=== PATIENT | female | born 2000 | race Caucasian/White ===

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

== ENCOUNTER 2023-04-19 12:34 | Outpatient (REF) | payer MEDICAID, SELFPAY ==
[2023-04-19 14:12] LABS: HCG Quantitative < 2 mIU/mL
== END 2023-04-19 12:35 | disposition home or self-care (01) ==
LOC: HO.HHCL 12:34
PROVIDERS: Visit Provider Nurse Practitioner Family
DX: N91.2 Amenorrhea, unspecified (principal)
CPT/HCPCS: 36415; 84702

== ENCOUNTER 2023-04-21 12:23 | Outpatient (REF) | payer MEDICAID, SELFPAY ==
[2023-04-21 13:46] LABS: HCG Quantitative < 2 mIU/mL
== END 2023-04-21 12:24 | disposition home or self-care (01) ==
LOC: HO.HHCL 12:23
PROVIDERS: Visit Provider Nurse Practitioner Family
DX: N91.2 Amenorrhea, unspecified (principal)
CPT/HCPCS: 36415; 84702

== ENCOUNTER 2023-05-12 16:35 | Outpatient (REF) | payer MEDICAID, SELFPAY | END 2023-05-12 16:36 | disposition home or self-care (01) | LOC: HO.HHCLNP 16:35 | PROVIDERS: Visit Provider Registered Nurse | DX: R30.0 Dysuria (principal) | CPT/HCPCS: 87086; 87088; 87186 ==

== ENCOUNTER 2023-06-02 00:55 | Emergency (ER) | payer MEDICAID, SELFPAY ==
[2023-06-02 01:12] VITALS: BP 126/57; PULSE 78; RESP 16; TEMP 36.6; O2SAT 100; BMI 35.2
[2023-06-02 01:48] LABS: Appearance Urine Clear; Color Urine Yellow; Glucose Urine UA Negative (Negative); Leukocyte Esterase Urine Trace (Negative); Nitrite Urine Negative (Negative); PH 6.5 (5.0-9.0); Specific Gravity - Urine >= 1.030 (1.005-1.025); UMIC TRIGGER UACC YES; Urine Blood Negative (Negative); Urine Ketones Trace mg/dL (Negative); Urine Protein Negative (Neg-Trace)
[2023-06-02 01:59] LABS: Bacteria Urine None Seen (None Seen); Hyaline Casts Urine 0-2 /LPF (0-2); WBC Urine 0-5 /HPF (0-5)
[2023-06-02 04:16] VITALS: BP 101/52; PULSE 72; RESP 16; O2SAT 97
[2023-06-02 05:39] LABS: UPreg QC Valid YES; Urine Pregnancy NEGATIVE (NEGATIVE)
--- NOTE | 2023-06-02 05:42 | ED_ITS ---
HPI - General Adult General Chief complaint: General Medical Stated complaint: urogen female Time Seen by Provider: 06/02/23 05:32 Source: patient Mode of arrival: ambulatory Limitations: no limitations History of Present Illness HPI narrative: Patient comes to the emergency room complaining of an allergic reaction to Monistat over chills. Patient states that she was diagnosed with a UTI, took all the prescribed antibiotics. Shortly after she finished a course of antibiotics, patient started having itching and burning in the vulvar area. Patient bought [id number] Monistat of yells and applied him at home. Patient states that a few minutes after she inserted the overall, she started having worsening symptoms of itching and burning. Patient removed most of the cream without wash cloth. By the time the patient arrived in the emergency room, patient was still complaining of burning sensation and labial swelling Related Data Allergies Allergy/AdvReac Type Severity Reaction Status Date / Time Seasonal Allergies Allergy Itchy Eyes Verified 06/02/23 01:11 Review of Systems Review of Systems: Constitutional : No Weight loss, No Fever, No Chills, No Night Sweats, No Fatigue, No Malaise ENT/Mouth : No Hearing loss, No Ear Pain, No Nasal Congestion, No Sinus Pain, No Hoarseness, No sore throat, No Rhinorrhea, No Swallowing Difficulty Eyes: No Eye Pain, No Swelling, No Redness, No Foreign Body, No Discharge, No Vision Changes Cardiovascular : No Chest Pain, No SOB, No Dyspnea on Exertion, No Orthopnea, No Edema, No Palpitations Respiratory : No Cough, No Sputum, No Wheezing, No Smoke Exposure, No Dyspnea Gastrointestinal : No Nausea, No Vomiting, No Diarrhea, No Constipation, No abdominal Pain, No Hematochezia, No Melena Genitourinary : Complaining of labial swelling itching and burning. No Dysuria, No Urinary Frequency, No Hematuria, No Urinary Incontinence, No Urgency, No Flank Pain, No Urinary Flow Changes, No Hesitancy Musculoskeletal : No joint pain, No Myalgias, No Joint Swelling Skin : No Skin Lesions, No rash Neuro : No Weakness, No Numbness, No Paresthesias, No Loss of Consciousness, No Dizziness, No Headache Psych : No Anxiety/Panic, No Depression, No SI/HI/AH/VH, No Social Issues, Heme/Lymph: No Bruising, No Bleeding,No Lymphadenopathy Endocrine : No Polyuria, No Polydipsia, No Temperature Intolerance [facility] Social History Social History Advance Directives: No Advance Directives Information Provided: No Physical Exam ED Vital Signs: Vital Signs - 24 hr 06/02/23 01:12 06/02/23 04:16 Temperature 97.9 F Pulse Rate 78 72 Respiratory Rate 16 16 Blood Pressure 126/57 L 101/52 L Pulse Oximetry 100 97 Oxygen Delivery Method Room Air Room Air BMI result Body Mass Index 35.2 Const Other: Appearance: Alert. Oriented X3. No acute distress. Eyes: Pupils equal, round and reactive to light. ENT: Pharynx normal. Neck: Normal inspection. Neck supple. No lymph nodes noted. No crepitus CVS: Normal heart rate and rhythm. Pulses normal. Normal S1 and S2 Respiratory: No respiratory distress. Breath sounds normal. No Wheezing. No rales Abdomen: Soft and nontender. No rigidity. No distention. : Normal genitalia, no erythema, no swelling Skin: Skin warm and dry. Normal skin color. Normal skin turgor. Extremities: No lower extremity edema. No Lacerations. No Rash Neuro: Oriented X 3. No motor deficit. No sensory deficit. Moving all extremities. No slurred speech. CN 2 through 12 grossly intact Psych: calm, cooperative, normal affect Medical Decision Making Medical Decision Making MDM Narrative: Patient likely had an allergic reaction to the Monistat. Patient was able to remove it -patient was given p.o. prednisone, Benadryl and Pepcid -no airway compromise Lab Data Labs: Lab Results 06/02/23 Range/Units 01:43 Urine Color Yellow Urine Appearance Clear Urine pH 6.5 (5.0-9.0) Ur Specific [place] >= 1.030 H (1.005-1.025) Urine Protein Negative (Neg-Trace) mg/dL Urine Glucose (UA) Negative (Negative) mg/dL Urine Ketones Trace (Negative) mg/dL Urine Blood Negative (Negative) Urine Nitrite Negative (Negative) Ur Leukocyte Esterase Trace H (Negative) Urine RBC 6-10 H (0-2) /HPF Urine WBC 0-5 (0-5) /HPF Ur Squamous Epith Cells 3-5 (0-2) /HPF Urine Bacteria None Seen (None Seen) Hyaline Casts 0-2 (0-2) /LPF Urine Test NEGATIVE (NEGATIVE) Discharge Plan Discharge Clinical Impression: Allergic reaction to drug Patient Disposition: Home, Self-Care Instructions: General Allergic Reaction (ED) Additional Instructions: Please follow-up with your primary care physician tomorrow. If you have any worsening or new symptoms, please return to the emergency room or call 911
[2023-06-02 06:03] VITALS: BP 97/50; PULSE 72; RESP 16; TEMP 36.7; O2SAT 97
[2023-06-02] MEDS: predniSONE 20 MG TABLET 40 MG PO (06:33)
[2023-06-02] MEDS: diphenhydrAMINE HCL 25 MG CAPSULE 50 MG PO (06:33)
[2023-06-02] MEDS: Famotidine 20 MG TABLET PO (06:33)
[2023-06-02 06:37] VITALS: BP 97/50; PULSE 72; RESP 16; TEMP 36.6; O2SAT 98
== END 2023-06-02 06:38 | disposition home or self-care (01) ==
PROVIDERS: Emergency Provider Emergency Medicine; PCP Registered Nurse
DX: L29.2 Pruritus vulvae (principal); T49.0X5A Adverse effect of local antifungal, anti-infective and anti-inflammatory drugs, initial encounter; Y92.9 Unspecified place or not applicable
CPT/HCPCS: 81001; 81025; 99283

== ENCOUNTER 2023-11-30 18:05 | Emergency (ER) | payer OTHER, SELFPAY ==
--- NOTE | ~2023-11-30 | US_ITS ---
EXAMINATION: US OBSTETRICAL ULTRASOUND CLINICAL INFORMATION: patient with nausea and vomiting. COMPARISON: None available. LMP: October 24, 2023. Gestational age by maternal dates is 5 weeks and 2 days. Estimated date of delivery by maternal dates is July 30, 2024. TECHNIQUE: Transabdominal and transvaginal obstetrical ultrasound performed. FINDINGS: The uterus is normal in appearance. There is a single intrauterine gestational sac with mean sac diameter of 0.97 cm suggesting a 5 week 5 day gestation. No pole identified. MATERNAL ADNEXA: The right maternal ovary measures 2.6 x 1.7 x 1.6 cm. The left maternal ovary measures 3.2 x 2.1 x 2.7 cm. There is no significant maternal adnexal mass. No maternal pelvic ascites. US/US OB pelvic and transvaginal IMPRESSION: Single intrauterine gestational sac and yolk sac likely related to early . No pole currently identified. Follow-up suggested. Electronically signed by: Keo Neves MD 12/01/2023 02:25 AM EDT
[2023-11-30 18:22] VITALS: BP 119/60; PULSE 98; RESP 16; TEMP 36.3; O2SAT 99; BMI 31.7
--- NOTE | 2023-11-30 18:25 | ED_ITS ---
HPI - General Adult General Chief complaint: Abdominal Pain Stated complaint: nauseous/? not feeling well Time Seen by Provider: 11/30/23 22:02 Source: patient Mode of arrival: ambulatory Limitations: no limitations History of Present Illness ED Provider: JILL WOODARD narrative: 22 yo female with no sig PMH noted the past few days some intermittent crampy abdominal pain LMP 10/24 and then she felt nauseated she started to worry she was . She denies severe pain, fainting, discharge or bleeding. This is her first . MD complaint: ? Onset (ago): day(s) (2) Location: abdomen Radiation: non-radiation Severity: mild Quality: dull Relieving factors: none Exacerbating factors: none Associated symptoms: loss of appetite Treatments prior to arrival: none Related Data Previous Rx's ?Medication ?Instructions ?Recorded vit no.133-ferrous 1 tab PO DAILY #90 tabs 11/30/23 fumarate 28 mg-folic acid 800 mcg tablet () Allergies Allergy/AdvReac Type Severity Reaction Status Date / Time Seasonal Allergies Allergy Itchy Eyes Verified 11/30/23 18:25 Review of Systems 2 Review of Systems: Constitutional : No Weight loss, No Fever, No Chills ENT/Mouth : No sore throat, No Rhinorrhea Eyes: No Swelling, No Redness Cardiovascular : No Chest Pain, No SOB, NoEdema Respiratory : No Cough, No Sputum, No Wheezing Gastrointestinal : Positive Nausea, no Vomiting, no Diarrhea, positive abdominal Pain, No Hematochezia, No Melena Genitourinary : No Dysuria, No Urinary Frequency, No Hematuria, No Urgency Musculoskeletal : No joint pain, No Myalgias, No Joint Swelling Skin : No Skin Lesions, No rash Neuro : No Weakness, No Numbness, No Dizziness, No Headache All other systems reviewed and are negative. COUNTS INCLUDE 234 BEDS AT THE [facility] Past Medical History Attestation statement: The following information was validated with the patient. Source: old records reviewed Medical History Anemia Social History Social History (Updated 11/30/23 @ 22:38 by Wen Lopes DO) Patient Tobacco Use Status: Never used Tobacco Smoked in Last 30 Days: No Use of substances other than those prescribed or required for medical reasons: No Advance Directives: No Advance Directives Information Provided: No Do you have a plan to hurt others: No Plan Physical Exam ED Vital Signs: Vital Signs - 24 hr 11/30/23 18:22 11/30/23 21:23 11/30/23 21:27 Temperature 97.3 F 96.8 F 98.6 F Pulse Rate 98 82 85 Respiratory Rate 16 16 16 Blood Pressure 119/60 118/54 L 118/54 L Pulse Oximetry 99 99 100 Oxygen Delivery Method Room Air Room Air Room Air 11/30/23 22:32 11/30/23 22:34 Temperature 97.2 F 97.2 F Pulse Rate 72 72 Respiratory Rate 16 16 Blood Pressure 95/53 L 95/53 L Pulse Oximetry 100 100 Oxygen Delivery Method Room Air Room Air BMI result Body Mass Index 31.7 Appearance: Alert. Oriented X3. No acute distress. Eyes: Pupils equal, round and reactive to light. ENT: Pharynx normal. Neck: Normal inspection. Neck supple. CVS: Normal heart rate and rhythm. Pulses normal. Respiratory: No respiratory distress. Breath sounds normal. Abdomen: Soft and nontender. Skin: Skin warm and dry. Normal skin color. Normal skin turgor. Extremities: No lower extremity edema. No calf ttp Neuro: Oriented X 3. No motor deficit. No sensory deficit. Course Course Course Narrative: RME; time by SHERI October. 22-year-old female presents to ED for nausea and vomiting without any abdominal pain. Patient has missed her menstruation. Abdomen is benign. Labs ordered. Reevaluation(s) Reevaluation #1: final report agrees with prelim read - early no change in management Medical Decision Making Medical Decision Making [facility] Narrative: 22 yo female here with some cramps but no bleeding and nausea LMP in october at this time concern for her abdominal exam is completely benign no ttp doubt ectopic will obtain basic labs, UA and US to evaluate for IUP. Return precautions given and start on . Differential Diagnosis Differential Diagnoses: The differential diagnosis associated with the presentation includes early , abdominal cramping, threatened Lab Data [facility] Lab Attestation statement: I reviewed the patient's lab results. 11/30/23 18:33 11/30/23 18:33 Labs: Lab Results 11/30/23 11/30/23 Range/Units 18:33 20:05 WBC 9.5 (4.8-10.8) X10*3/uL RBC 4.87 (4.20-5.50) X10*6/uL Hgb 11.1 L (12.0-16.0) g/dl Hct 35.4 L (37.0-47.0) % MCV 72.7 L (80.0-98.0) fL MCH 22.8 L (27.0-33.0) pg MCHC 31.4 (31.0-35.0) g/dl RDW 14.5 (11.0-16.0) % Plt Count 345 D (160-400) X10*3/uL MPV 10.2 (9.4-12.3) fL Immature Gran % (Auto) 0.3 (0.0-0.4) % Neut % (Auto) 71.2 (45-73) % Lymph % (Auto) 19.0 L (20-40) % [place] % (Auto) 8.1 (2-11) % Eos % (Auto) 1.0 (0-4) % Baso % (Auto) 0.4 (0-2) % Lymph # (Auto) 1.8 (1.2-4.9) X10*3/uL [place] # (Auto) 0.8 (0.1-1.2) X10*3/uL Eos # (Auto) 0.1 (0.0-0.4) X10*3/uL Baso # (Auto) 0.0 (0.0-0.2) X10*3/uL Abs Immat Gran (auto) 0.03 (0.00-0.03) X10*3/uL Absolute Neuts (auto) 6.8 (2.0-8.3) x10*3/uL Absolute Nucleated RBC 0.000 (0.0-0.012) X10*3/uL Nucleated RBC % (auto) 0.0 (0.0-0.2) /100WBC Sodium 138 (135-145) mmol/L Potassium 3.8 (3.3-5.1) mmol/L Chloride 107 (96-108) mmol/L Carbon Dioxide 23 (22-29) mmol/L Anion Gap 12 (12-20) BUN 9 (9-16) mg/dL Creatinine 0.67 (0.5-1.4) mg/dL Estim Creat Clear Calc 125.0 Estimated GFR > 60 Random Glucose 90 (60-115) mg/dL Calcium 10.0 D (8.4-10.2) mg/dL Total Bilirubin 0.2 (0.0-1.0) mg/dL AST 13 (5-31) U/L ALT 12 (0-31) U/L Alkaline Phosphatase 45 (39-117) U/L Total Protein 7.6 (6.5-8.0) g/dL Albumin 4.4 (3.5-5.0) g/dL Lipase 34 (8-78) U/L Beta HCG, Quant 21221 mIU/mL Urine Color Yellow Urine Appearance Clear Urine pH 5.5 (5.0-9.0) Ur Specific [place] 1.010 (1.005-1.025) Urine Protein Negative (Neg-Trace) mg/dL Urine Glucose (UA) Negative (Negative) mg/dL Urine Ketones Negative (Negative) mg/dL Urine Blood Negative (Negative) Urine Nitrite Negative (Negative) Ur Leukocyte Esterase Negative (Negative) Urine Test POSITIVE H (NEGATIVE) Influenza Type A (PCR) NEGATIVE (Negative) Influenza Type B (PCR) NEGATIVE (Negative) RSV RNA Qual (PCR) NEGATIVE (Negative) SARS-CoV-2 RNA (RT-PCR) NEGATIVE (Negative) Independent Interpretation I performed an independent interpretation of an: Ultrasound (early , cyst) Radiology Impression Discussion of test interpretation with radiology: I have reviewed the radiologist's reading. Independent Historian Clinical information obtained from an independent historian. History obtained from or confirmed by: Other External Record Review External record reviewed: Office record Discharge Plan Discharge Clinical Impression: Early stage of , Ovarian cyst Patient Disposition: Home, Self-Care Instructions: (ED), Ovarian Cyst (ED) Additional Instructions: return for any worsening symptoms such as severe pain, vaginal bleeding, fainting or any other concerns. please follow up with your doctor start a final ultrasound report not done if anything unusual will call at home Prescriptions: New 28-800 mg-mcg tablet 1 tab PO DAILY Qty: 90 0RF Interventions: ED Discharge Assessment Last Done: 11/30/23 22:34 Discharge Date/Time: 11/30/23 22:35 Print Language: Kinyarwanda
[2023-11-30 18:38] LABS: MANUAL DIFF FLAG NO
[2023-11-30 18:41] LABS: Basophils Percent Auto 0.4 % (0-2); Eosinophils Absolute Auto 0.1 X10*3/uL (0.0-0.4); Hematocrit 35.4 % (37.0-47.0); Hemoglobin 11.1 g/dl (12.0-16.0); Imm Gran Abs Auto 0.03 X10*3/uL (0.00-0.03); Imm Gran Pct Auto 0.3 % (0.0-0.4); Lymphocytes Absolute Auto 1.8 X10*3/uL (1.2-4.9); Mean Corpuscular HGB Conc 31.4 g/dl (31.0-35.0); Mean Corpuscular Hemoglobin 22.8 pg (27.0-33.0); Mean Corpuscular Volume 72.7 fL (80.0-98.0); Mean Platelet Volume 10.2 fL (9.4-12.3); Monocytes Absolute Auto 0.8 X10*3/uL (0.1-1.2); Monocytes Percent Auto 8.1 % (2-11); Neutrophils Absolute Auto 6.8 x10*3/uL (2.0-8.3); Neutrophils Percent Auto 71.2 % (45-73); Platelet Count 345 X10*3/uL (160-400); Red Blood Count 4.87 X10*6/uL (4.20-5.50); Red Cell Distribution Width 14.5 % (11.0-16.0); White Blood Count 9.5 X10*3/uL (4.8-10.8)
[2023-11-30 18:59] LABS: Alanine Aminotransferase 12 U/L (0-31); Albumin Level 4.4 g/dL (3.5-5.0); Alkaline Phosphatase 45 U/L (39-117); Anion Gap 12 (12-20); Aspartate Amino Transferase 13 U/L (5-31); Bilirubin Total 0.2 mg/dL (0.0-1.0); Blood Urea Nitrogen 9 mg/dL (9-16); Carbon Dioxide 23 mmol/L (22-29); Chloride 107 mmol/L (96-108); Estimated Glomerular Filt Rate > 60; Glucose Random 90 mg/dL (60-115); HCG Quantitative 11957 mIU/mL; Lipase 34 U/L (8-78); Potassium 3.8 mmol/L (3.3-5.1); Sodium 138 mmol/L (135-145); Total Protein 7.6 g/dL (6.5-8.0)
[2023-11-30 19:19] LABS: Influenza A PCR NEGATIVE (Negative); Influenza B PCR NEGATIVE (Negative); Resp Syncy Virus RNA Qual PCR NEGATIVE (Negative); SARS COV2 PCR INHOUSE NEGATIVE (Negative)
[2023-11-30 20:12] LABS: Appearance Urine Clear; Color Urine Yellow; Glucose Urine UA Negative (Negative); Leukocyte Esterase Urine Negative (Negative); Nitrite Urine Negative (Negative); PH 5.5 (5.0-9.0); Urine Blood Negative (Negative); Urine Ketones Negative (Negative); Urine Protein Negative (Neg-Trace)
[2023-11-30 20:13] LABS: UPreg QC Valid YES; Urine Pregnancy POSITIVE (NEGATIVE)
[2023-11-30 21:23] VITALS: BP 118/54; PULSE 82; RESP 16; TEMP 36; O2SAT 99
[2023-11-30 21:27] VITALS: BP 118/54; PULSE 85; RESP 16; TEMP 37; O2SAT 100
[2023-11-30 22:32] VITALS: BP 95/53; PULSE 72; RESP 16; TEMP 36.2; O2SAT 100
[2023-11-30 22:34] VITALS: BP 95/53; PULSE 72; RESP 16; TEMP 36.2; O2SAT 100
== END 2023-11-30 22:35 | disposition home or self-care (01) ==
PROVIDERS: Physician Assistant; Emergency Provider Emergency Medicine; PCP Registered Nurse
DX: N83.209 Unspecified ovarian cyst, unspecified side (principal); R11.2 Nausea with vomiting, unspecified; R10.2 Pelvic and perineal pain; Z03.818 Encounter for observation for suspected exposure to other biological agents ruled out; Z79.899 Other long term (current) drug therapy
CPT/HCPCS: 0241U; 76801; 76817; 80053; 81003; 81025; 83690; 84702; 85025; 99284

== ENCOUNTER 2024-03-26 16:30 | Emergency (ER) | payer OTHER, SELFPAY ==
[2024-03-26 17:42] VITALS: BP 110/60; PULSE 113; RESP 18; TEMP 36.9; O2SAT 98; BMI 34.2
--- NOTE | 2024-03-26 17:42 | ED_ITS ---
HPI - URI/Sore Throat General Chief Complaint: Upper Respiratory Symptoms Stated Complaint: Congestion, chills, body aches Time Seen by Provider: 03/26/24 18:30 Source: patient Mode of arrival: ambulatory Limitations: no limitations History of Present Illness ED Provider: Dr. Kiel Pinto HPI Narrative: 23-year-old female history of anxiety, 22 weeks 5 days based on LMP 10/12/2023 with patient's stated EDC of 07/26/2024 who presents emergency department for evaluation of anxiety and flu-like illness. Patient states that she had to stop her antianxiety medicine secondary to her . She states that 3 days prior she believes that she had an anxiety attack. She then developed shaking chills , palpitations with fast heart rate with no skipped beats or pauses. He was then she was developed chills, sore throat, body aches, rhinorrhea, chest pain, shortness of breath. She denied nausea, vomiting, diarrhea, abdominal pain, dysuria, vaginal discharge, bloody discharge. She states she can feel the baby moving. Related Data Previous Rx's ?Medication ?Instructions ?Recorded vit no.133-ferrous 1 tab PO DAILY #90 tabs 11/30/23 fumarate 28 mg-folic acid 800 mcg tablet () oseltamivir 75 mg capsule (Tamiflu) 75 mg PO Q12H 5 days #10 caps 03/26/24 Allergies Allergy/AdvReac Type Severity Reaction Status Date / Time Seasonal Allergies Allergy Itchy Eyes Verified 03/26/24 17:45 Review of Systems Review of Systems: Yes all other systems are reviewed and are negative [facility] Past Medical History Medical History Anemia Social History Social History (Updated 11/30/23 @ 22:38 by Wen Lopes DO) Patient Tobacco Use Status: Never used Tobacco Smoked in Last 30 Days: Yes Use of substances other than those prescribed or required for medical reasons: No Advance Directives: No Advance Directives Information Provided: No Patient : Yes Physical Exam Vital Signs: Vital Signs: Last Vital Signs Temp 98.9 F 03/26/24 20:58 Pulse 93 03/26/24 20:58 Resp 18 03/26/24 20:58 BP 118/68 03/26/24 20:58 Pulse Ox 96 01/21/25 20:58 O2 Del Method Room Air 03/26/24 20:58 BMI result Body Mass Index 34.2 Vital signs revealed an elevated heart rate of 113 otherwise unremarkable Exam: General: Awake, alert in no distress Head: Normocephalic, atraumatic EENT: PERRL, Lids normal, sclera normal, conjunctiva normal, nose normal , ears normal, throat without erythema or exudates Neck: Supple, no adenopathy Lung: breath sounds symmetric, no wheezing, rales or rhonchi Chest: symmetric movement, nontender Heart: regular rate and rhythm, normal S1, S2 no murmurs or rubs Abdomen: soft, non-tender, nondistended, normal bowel sounds Back: no vertebral tenderness, no CVAT Extremities: no deformities, moves all extremities symmetrically, no edema Neuro: Awake, alert, oriented, normal speech, cranial nerves intact, moves all extremities symmetrically Psych: Pleasant, cooperative Course Course Course Narrative: This is a Rapid Medical Examination (RME) performed by Alisia Sung PA-C in triage. Full HPI, ROS, assessment and treatment plan per primary provider in the Main ED. 23 yo female who is 22 weeks presenting to the ER for evaluation of body aches, chills, nasal congestion for the last 3-4 days. diarrhea 1st day which resolved. reporting palpitations over the weekend. follows with [facility] for OB. reports normal movement today. no vaginal discharge or bleeding. Plan: charge nurse aware, to be brought back to treatment area Medications Administered Discontinued Medications Generic Name Dose Route Start Last Admin Trade Name Freq PRN Reason Stop Dose Admin Oseltamivir Phosphate 75 mg 03/26/24 20:08 03/26/24 20:18 Oseltamivir Phosphate 75 Mg Capsule PO 03/26/24 20:09 75 mg ONCE ONE Administration Medical Decision Making Medical Decision Making [facility] Narrative: 23-year-old female history of anxiety, 22 weeks 5 days based on LMP 10/12/2019 with patient's stated EDC of 07/26/2024 who presents emergency department for evaluation of anxiety and flu-like illness x3 days with symptoms including shaking chills, palpitations, sore throat, body aches, rhinorrhea, chest pain, shortness of breath. She denied sore throat, nausea, vomiting, abdominal pain, diarrhea, dysuria, vaginal discharge or bloody discharge. She states she can feel the baby moving there has been no decreased movement noted since she has been feeling ill. Vital signs revealed elevated heart rate otherwise unremarkable. heart tones were between 148 and 155. Physical examination was unremarkable. Differential diagnosis: ?Includes but is not limited to viral syndrome, COVID- 19, influenza, RSV, labor Course: 19:06 My interpretation patient's laboratory evaluation is as follows: COVID-19, RSV and rapid strep tests were negative. Patient's influenza test was positive for influenza A. I did discuss the patient's presentation and physical exam with the OBGYN covering [facility], Dr. Schreiber. She felt that the patient's symptoms were consistent with the flu and that the patient was not having any evidence for labor and did not need to be monitored at this time. She did recommend that the patient be started on Tamiflu 75 mg q.12 hours x5 days. The patient was given her 1st dose of Tamiflu here in the emergency department and given a prescription. She was also advised rest, take Tylenol for pain and fever into increase your fluid intake. She was given a work note, printed and verbal instructions and discharged home. Admission/Observation Consideration of admission/observation: Escalation of care including admission/observation considered (Yes) Consult Healthcare Provider Management of the patient was discussed with: Clinical Director (Covering [employer]ERSH[employer]NAGER physician at [facility], Dr. Schreiber) Lab Data Labs: Lab Results 03/26/24 Range/Units 18:41 Influenza Type A (PCR) POSITIVE A (Negative) Influenza Type B (PCR) NEGATIVE (Negative) RSV RNA Qual (PCR) NEGATIVE (Negative) SARS-CoV-2 RNA (RT-PCR) NEGATIVE (Negative) S. pyogenes GrpA ANUP Negative (Negative) Prescription Management I considered prescription management with: Antiviral (Tamiflu) Discharge Plan Discharge Clinical Impression: Influenza A, Second trimester Patient Disposition: Home, Self-Care Instructions: Influenza (ED) Additional Instructions: Your COVID-19, RSV and rapid strep throat test were negative Your influenza test was positive for influenza a and this explains all of your symptoms. Take extra-strength Tylenol 500 mg pills, 2 pills every 6 hours as needed for pain and fever. Take Tamiflu 75 mg pills, 1 pill every 12 hours for 5 days. This is a medication that will help reduce the number of days that your sick with the flu. Increase your fluid intake and rest. You need to make sure that you eat as well. I did discuss your presentation with the covering OBGYN doctor at [facility], Dr. Schreiber. At this time, she does not think that you need to go to [facility] to be monitored for contractions. However she wants you to follow-up with their group in 1-2 weeks when you feeling better for re- evaluation. If you develop any abdominal pain, vaginal discharge or bleeding vaginally you should go to [facility] for evaluation by your OBGYN doctors. We do not take care of women after 20 weeks and if you came here we would send you to [facility] in an ambulance. Please follow the influenza instructions but do not take any anti-inflammatory medications such as aspirin, ibuprofen, naproxen, Aleve or Motrin. Please return to the emergency department if your symptoms get worse or if you develop any symptoms that are concerning to you. Please see the return to work note Prescriptions: New oseltamivir [Tamiflu] 75 mg capsule 75 mg PO Q12H 5 Days Qty: 10 0RF No Action 28-800 mg-mcg tablet 1 tab PO DAILY Qty: 90 0RF Stand Alone Forms: Work/School Release Interventions: ED Discharge Assessment Last Done: 03/26/24 20:58 Discharge Date/Time: 03/26/24 20:58 Print Language: [place]
--- OUTSIDE RECORDS SUMMARY | 2024-03-26 18:10 | XMS_ITS | Encounter Summary ---
Author Organization [employer] Address [address] [facility] [address] [place] [address] Care Team Providers Care Clinical Trials Systems Administrator Name Role Phone [facility] Primary Care Provider Encounter Details Date Type Department Care Team ([facility] st Contact Info) Description 05/16/2023 Orders Only [facility] MEDICINE [address] [place], [place] [phone] [facility] [address] [place], [place] [phone] Dysuria (Primary Dx) Social History Tobacco Use Types Packs/Day Years Used Date Smoking Tobacco: Never Passive Smoke Exposure: Never Smokeless Tobacco: Never Alcohol Use Standard Drinks/Week Comments Not Currently 0 (1 standard drink = 0.6 oz pur e alcohol) Depression Answer Date Recorded Patient Health Questionnaire-9 Score 8 05/12/2023 Patient Health Questionnaire-9 Score 8 05/12/2023 Last PHQ-9: Questionnaire Data Not on file 0 05/12/2023 Housing Stability Answer Date Recorded What is your housing situation today? I have amy king 12/21/[address] you li ve. Do you have problems with any of the following? None of the above 12/21/2022 Food Insecurity Answer Date Recorded Within the past 12 months, y ou worried that your food would run out before you got money to buy more: Never True 12/21/2022 Within the past 12 months,th e food you bought just didn't last and you didn't have enough money to get more: Never True Transportation Answer Date Recorded In the past 12 months, has l ack of transportation kept you from medical appts, meetings, work or from getting things needed for daily living? No 12/21/2022 Utilities Answer Date Recorded In the past 12 months, has t he electric, gas, oil or water company threatened to shut off services in your home? No 12/21/2022 Depression Answer Date Recorded Patient Health Questionnaire-2 Score 2 05/12/2023 Comments No Sex and Gender Information Value Date Recorded Sex Assigned at Female 01/03/2022 10:22 AM EDT Legal Sex Female 10:22 AM EDT Gender Identity Female 01/03/2022 10:22 AM EDT Sexual Orientation Straight 01/03/2022 10 :22 AM EDT documented as of this encounter Plan of Treatment Upcoming Encounters Date Type Department Care Team (Late st Contact Info) Description 04/04/2024 3:00 PM EST Office Visit [facility] OPTOMETRY [address] [place] [address] Veronica Quinonez, OD [address] [place] [address] 04/12/2024 2:30 PM EST Office Visit [facility] ADULT DENTAL [address] [place], [place] [phone] Kirk Faulkner, DMD [address] [place] [address] documented as of this encounter Visit Diagnoses Diagnosis Dysuria- Primary documented in this encounter Additional Health Concerns Assessment Noted Time PHQ-9 Depression Total Score: 8 05/12/19 24 11:18 AM EST documented as of this encounter Care Teams Clinical Trials Systems Administrator Relationship Specialty Start Date End Date Carolina Moody FNP [address] [place] [address] PCP - General Family Medicine 02/02/22 documented as of this encounter
--- OUTSIDE RECORDS SUMMARY | 2024-03-26 18:10 | XMS_ITS | Encounter Summary ---
Author Organization [employer] Address [address] [place] [address] 7[address] [place] [address] Care Team Providers Care Pomologist Name Role Phone [facility] Primary Care Provider [phone] Reason for Referral * Imaging (Routine) - Closed Specialty Diagnoses / Procedures Referred By Contac t Referred To Contact Diagnoses Abnormal uterine bleeding (AUB) Procedures US Pelvis Transvaginal Scarlet Rosas MD [address] [place] [address] Phone: tel: fax: [address] Phone: tel: fax: Referral ID Status Reason Start Date Expiration Date Visits Re quested Visits Authorized [id number] Closed 07/20/2022 01/16/2023 1 1 * Imaging (Routine) - Closed Specialty Diagnoses / Procedures Referred By Contac t Referred To Contact Diagnoses Abnormal uterine bleeding (AUB) Procedures Us Pelvis complete Scarlet Rosas MD [address] [place] [address] Phone: tel: fax: [address] Phone: tel: fax: Referral ID Status Reason Start Date Expiration Date Visits Re quested Visits Authorized [id number] Closed 07/20/2022 01/16/2023 1 1 Encounter Details Date Type Department Care Team ([facility] Contact Info) Description 07/20/2022 Orders Only [facility] MED[facility]INE [address] [place] [address] Scarlet Rosas MD [address] [place] [address] Abnormal uterine bleeding (AUB) (Primary Dx) Social History Tobacco Use Types Packs/Day Years Used Date Smoking Tobacco: Never Passive Smoke Exposure: Never Smokeless Tobacco: Never Alcohol Use Standard Drinks/Week Comments Not Currently 0 (1 standard drink = 0.6 oz pur e alcohol) Depression Answer Date Recorded Patient Health Questionnaire-9 Score 7 03/25/2022 Depression Answer Date Recorded Patient Health Questionnaire-2 Score 1 03/25/2022 Comments No Sex and Gender Information Value Date Recorded Sex Assigned at Female 01/03/2022 10:22 AM EDT Legal Sex Female 10:22 AM EDT Gender Identity Female 01/03/2022 10:22 AM EDT Sexual Orientation Straight 01/03/2022 10 :22 AM EDT COVID-19 Exposure Response Date Recorded In the last 10 days, have yo u been in contact with someone who was confirmed or suspected to have Coronavirus/COVID-19? No / Unsure 07/11/2022 11:07 AM EDT documented as of this encounter Plan of Treatment Upcoming Encounters Date Type Department Care Team ([facility] Contact Info) Description 04/04/2024 3:00 PM EST Office Visit [facility] OPTOMETRY [address] [place] [address] Veronica Quinonez, OD [address] [place] [address] 04/12/2024 2:30 PM EST Office Visit [facility] ADULT DENTAL [address] [place] [address] Kirk Faulkner, DMD [address] [place] [address] Scheduled Orders Name Type Priority Associated Diagnoses Orde r Schedule Us Pelvis complete Imaging Routine Abnormal uterine bleeding (AUB) Expected: 07/20/2022, Expires: 07/21/2023 US Pelvis Transvaginal Imaging Routine Abnormal uterine bleeding (AUB) Expected: 07/20/2022, Expires: 07/21/2023 documented as of this encounter Procedures Procedure Name Priority Date/Time Associated Diagnosis Comments CULTURE, URINE, ROUTINE Routine 10/04/2022 10:37 AM EDT Abnormal uterine bleeding (AUB) documented in this encounter Results * Culture, Urine, Routine (10/04/2022 10:37 AM EDT) Urine specimen obtained by clean catch procedure / Unknown 10/04/2022 10:37 AM EDT 10/04/2022 6:38 PM EDT Comment:[facility] - 10/06/2022 6:02 AM EDT Urine Culture Report Result Urine Culture 50,000 to 100,000 cfu/ml Urine Culture Mixed bacterial manuel characteristic of Urine Culture urogenital contamination. Specimen Source: Urine clean catch [facility] MICROBIOLOGY - GENERAL ORDER KALYN Final Result [facility] [address] [place] [phone] documented in this encounter Visit Diagnoses Diagnosis Abnormal uterine bleeding (AUB)- Primary documented in this encounter Additional Health Concerns Assessment Noted Time PHQ-9 Depression Total Score: 7 03/25/19 23 3:18 PM EST documented as of this encounter Care Teams Pomologist Relationship Specialty Start Date End Date Carolina Moody FNP [address] [place] [id number] PCP - General Family Medicine 02/02/22 documented as of this encounter
--- OUTSIDE RECORDS SUMMARY | 2024-03-26 18:10 | XMS_ITS | Encounter Summary ---
Author Organization [employer] Address [address] [facility] 7 [place] [address] Care Team Providers Care Bundle Wrapper Name Role Phone [facility] Primary Care Provider [phone] Reason for Visit * Reason Comments Filling Encounter Details Date Type Department Care Team ([facility] Contact Info) Description 03/11/2024 2:30 PM EST Office Visit [facility] ADULT DENTAL [address] [place], [place] [phone] Ria Jonas, MILES [address] [place], [place] [phone] Social History Tobacco Use Types Packs/Day Years Used Date Smoking Tobacco: Never Passive Smoke Exposure: Never Smokeless Tobacco: Never Alcohol Use Standard Drinks/Week Comments Not Currently 0 (1 standard drink = 0.6 oz pur e alcohol) Depression Answer Date Recorded Patient Health Questionnaire-9 Score 0 07/03/2023 Patient Health Questionnaire-9 Score 0 07/03/2023 Last PHQ-9: Questionnaire Data Not on file 0 07/03/2023 Housing Stability Answer Date Recorded What is your housing situation today? I have amy king 12/15/[address] you li ve. Do you have problems with any of the following? None of the above 12/15/2023 Food Insecurity Answer Date Recorded Within the past 12 months, y ou worried that your food would run out before you got money to buy more: Never True 12/15/2023 Within the past 12 months,th e food you bought just didn't last and you didn't have enough money to get more: Never True 01/2024 Transportation Answer Date Recorded In the past 12 months, has l ack of transportation kept you from medical appts, meetings, work or from getting things needed for daily living? No 12/15/2023 Utilities Answer Date Recorded In the past 12 months, has t he electric, gas, oil or water company threatened to shut off services in your home? No 12/15/2023 Depression Answer Date Recorded Patient Health Questionnaire-2 Score 0 07/03/2023 Internet Access Answer Date Recorded Internet Access Q1 Yes 12/15/2023 Internet Access Q2 Not on file 12/15/2023 Comments Yes Sex and Gender Information Value Date Recorded Sex Assigned at Female 01/03/2022 10:22 AM EDT Legal Sex Female 10:22 AM EDT Gender Identity Female 01/03/2022 10:22 AM EDT Sexual Orientation Straight 01/03/2022 10 :22 AM EDT documented as of this encounter Progress Notes * Ria Jonas DMD - 03/11/2024 2:30 PM EST Dental procedures in this visit D9999.5 - NO CHARGE PROCEDURE (Completed) Service provider: Ria Jonas DMD Billing provider: Kirk Faulkner DMD [id number] - CASE PRESENTATION, DETAILED AND EXTENSIVE TREATMENT PLANNING (Completed) Service provider: Ria Jonas DMD Billing provider: Kirk Faulkner DMD Patient ID: Rajan Garcia is a 23 y.o. female. Time Out: Date: 03/11/2024 Location: [facility] Tooth: #31 Procedure: Congregational Verified the above with patient, workers compensation claims assistant, and provider. Confirmed via patient's chart, intraorally and by radiographs. Hedis Review Nurse: not applicable Composite samaritan initiated on #[address] Ria Jonas DMD Risk, benefits, and alternatives discussed with the patient. CONSENT FORM INITIALED & SIGNED BY THE PATIENT AND COUNTERSIGNED BY Dr. Ria Jonas DMD Medical history: Reviewed in EHR - patient reports Vitals: There were no vitals taken for this visit. Allergies: Reviewed in EHR Medications: Reviewed in EHR ASA II - LA: 20% topical benzocaine; local infiltrations with 1 carpule 2% lidocaine 1:100,000 epinephrineand 1 carpule 4% septocaine/articaine 1:100,000 epinephrine - Existing decay partially removed, however patient reports still feeling pain and unable to achieve profound anesthesia working on tooth #31. Due to anesthesia limitations, informed patient we will need to temporize tooth today and attempt caries excavation on another day. Patient understands and accepts all recommendations. Tooth #31 temporized with Ionofill. Occlusion adjusted. Patient satisfied with adjustments. Patient made aware possible post op sensitivity. All patient questions answered. Patient comfortable upon dismissal. NV: Restorative Provider: Dr. Ria Jonas DMD Laser Engraver: Dafne Mcclure Supervising Dentist: Dr. Kirk Faulkner DMD * Kirk Faulkner DMD - 03/11/2024 2:30 PM EST I have reviewed the documentation and dental procedures made by the rendering provider, Ria Jonas DMD, and approve their chart entries for this visit. Kirk Faulkner DMD documented in this encounter Plan of Treatment Upcoming Encounters Date Type Department Care Team (Late st Contact Info) Description 04/04/2024 3:00 PM EST Office Visit [facility] OPTOMETRY [address] [place] [address] CristianoVeronica hester, OD [address] [place] [address] 04/12/2024 2:30 PM EST Office Visit [facility] CHC ADULT DENTAL [address] [place] [address] Kirk Faulkner DMD [address] [place] [address] Scheduled Orders Name Type Priority Associated Diagnoses Orde r Schedule 30 O 30 O RESIN-BASED COMPOSITE - 1 SURFACE, POSTERIOR Dental Routine [address] arting 03/11/2024 documented as of this encounter Procedures Procedure Name Priority Date/Time Associated Diagnosis Comments NO CHARGE PROCEDURE Routine 03/11/2024 2 :30 PM EST [facility]CT[facility] GENERAL SERVICES - PROFESSIONAL VISITS - CASE PRESENTATION, SUBSEQUENT TO DETAILED AND EXTENSIVE TREATMENT PLANNING Routine 03/11/2024 2:30 PM EST documented in this encounter Visit Diagnoses Not on filedocumented in this encounter Additional Health Concerns Assessment Noted Time PHQ-9 Depression Total Score: 0 07/03/19 24 11:41 AM EDT documented as of this encounter Care Teams Bundle Wrapper Relationship Specialty Start Date End Date Carolina Moody FNP [address] [place] [id number] PCP - General Family Medicine 02/02/22 documented as of this encounter
--- OUTSIDE RECORDS SUMMARY | 2024-03-26 18:10 | XMS_ITS | Clinical Summary ---
Author Organization [employer] Address [address] [facility] [address] [place] [address] Care Team Providers Care Crystal Flat Grinder Name Role Phone Carolina Moody [facility] Primary Care Provider [phone] Allergies Active Allergy Reactions Criticality Noted Date Comments Pollen Extract 03/25/2022 Medications Vit-Fe Fumarate-FA ( Vitamins) 28-0.8 MG tablet Take 1 tablet by mouth Once per day. 4 Active Sodium Fluoride 1.1 % creamIndication s:Dental caries Strong teeth for 2 minutes, morning and night. Spit, do not rinse. Do not eat or drink anything for 30 minutes following use. 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 he patient has a variant in each of her ACADM genes, which is the causative gene. Thus, she is at risk for symptoms including hypoglycemia and metabolic decompensation in periods of fasting. She has no reported history of seizures or severe hypoglycemic episodes. However, she does report having periods of light-headedness when hungry. We recommend she meet with a medical coding technician as soon as possible for a full metabolic work-up. This will determine if dietary modification is necessary. This is particularly important during . Some data suggest women with MCAD deficiency are at an increased risk for HELLP syndrome during . A referral will be sent as soon as possible. 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 [facility] site: [place] 2. Delivery site: [facility] 3. Mobile Mommas: 4. Dating criteria: 5. Blood type: A pos 6. Genetic screening: low-risk male 6. GBS: Date: 7. FOB name: Areil 8. Plans A. Epidural or other pain management - B. Labor support identified - C. Tdap - Date:, Flu - Date: 01/25/2024 D. Breast or Bottle feed: E. Baby's name - F. Circumcision - 9. 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 Menometrorrhagia 04/21/2017 Comments Yes Encounters Date Type Department Care Team Description 03/11/2024 2:30 PM EST Office Visit [facility] [address] [place] [address] Ria Jonas DMD 02/13/2024 2:00 PM EST Office Visit [facility] [address] [place] [address] Scarlett Monteiro Dental calculus (Primary Dx); Dental caries; Gingivitis 01/02/2024 Telephone [facility] [address] [place], [place] [phone] Carolina Moody FNP from Last 3 Months Immunizations Name Administration Dates Next Due DTaP 06/27/2007, 5,07/10/2003,05/02,02/06/2003 HPV 9-Valent 04/18/2016,04/17/2015,12/17/2013 Hep A, ped/adol, 2 dose 04/18/2016,04/17/2015 Hep B, Adolescent or Pediatric 07/03/2003,2003,02/06/2003 Hib (HbOC) 06/04/2004,05/02/2003,02/06/2003 IPV 04/02/2007, 4,05/02/2003,02/06 Influenza injectable quadriv alent IIV4 with preservative 04/17/2015 Influenza injectable quadriv alent preservative free 03/01/2021,02/10/2020,04/21/2017,04/18,12/17/2013 Influenza, live, intranasal 01/09/2012 MMR 06/27/2007,02/16/2004 Meningococcal MCV4P ACYW-135 02/10/2020, 12/17/2013,06/09/2003,04/02 Pfizer Covid-19 Vaccine 12+ 07/15/2020 Tdap 06/15/2018,02/16/2004 Varicella 04/02/2007,02/16/2004 Social History Tobacco Use Types Packs/Day Years Used Date Smoking Tobacco: Never Passive Smoke Exposure: Never Smokeless Tobacco: Never Tobacco Cessation:Counseling Given: Not Answered Alcohol Use Standard Drinks/Week Comments Not Currently [...] Orientation Straight 01/03/2022 10 :22 AM EDT Last Filed Vital Signs Vital Sign Reading Time Taken Comments Blood Pressure 122/84 02/13/2024 2:08 PM EST Pulse 89 12/20/2023 11:16 AM EDT Temperature 36.6 ??C (97.8 ??F) 12/20/2023 11:16 AM E DT Respiratory Rate 18 12/20/2023 11:16 AM EDT Oxygen Saturation 98% 07/03/2023 11:40 AM EDT Inhaled Oxygen Concentration - - Weight 82.8 kg (182 lb 9.6 oz) 12/20/2023 11:16 AM EDT Height 154.9 cm (5' 1 ) 12/20/2023 11:16 AM EDT Body Mass Index 34.5 12/20/2023 11:16 AM EDT Plan of Treatment Upcoming Encounters Date Type Department Care Team (Late st Contact Info) Description 04/04/2024 3:00 PM EST Office Visit [facility] [address] [place], [place] [phone] Cristiano, Veronica, OD [address] [place] [address] 04/12/2024 2:30 PM EST Office Visit [facility] [address] [place], [place] [phone] Kirk Faulkner, DMD [address] [place], [place] [phone] Health Maintenance Due Date Last Done Comments HIV Screening 2002 Lipid Panel 2002 Alcohol/Substance Use Screening 2014 Dental X-Ray: Full Mouth 05/04/2019 05/03/2016 Hepatitis C Screening 2020 Chlamydia and Gonorrhea Screening 10/05/2023 10/04/2022, 05/30/2022 COVID-19 Vaccine ( season) 2023 07/15/2020 Depression Screening 07/02/2024 07/03/2023, 07/03/19 24 Dental Oral Exam 08/14/2024 02/13/2024, , 05/18/2020, Additional history exists Dental Prophylaxis 08/14/2024 02/13/2024, 0 10/12/2021, 02/22/2021, Additional history exists SDOH Screening 12/14/2024 12/15/2023 Dental X-Ray: Bitewings 02/13/2025 02/13/20 24, 12/28/2020, 05/18/2020, Additional history exists Tobacco Screening 03/11/2025 03/11/2024 Pap Smear 01/24/2027 01/25/2024 DTaP/Tdap/Td Vaccines (7 - Td or Tdap) 06/15/2028 06/15/2018, 06/27/2007, 06/04/2004, Additional history exists Zoster Vaccines (1 of 2) 2052 RSV Patients and Patients Aged 60 years or older (1 - 1-dose 75+ series) 2077 Hepatitis B Vaccines Completed 07/03/2003, 05/02/2003, 02/06/2003 HIB Vaccines Completed 06/04/2004, 04/07, 02/06/2003 IPV Vaccines Completed 04/02/2007, 06/05, 05/02/2003, Additional history exists HPV Vaccines Completed 04/18/2016, 04/06, 12/17/2013 Hepatitis A Vaccines Completed 04/18/2016, 04/17/19 16 Meningococcal Vaccine Completed 02/10/2020 , 12/17/2013, 06/09/2003, Additional history exists Influenza Vaccine Completed 01/25/2024, , 02/10/2020, Additional history exists Pneumococcal Vaccine: Pediatrics (0 to 5 Years) and At-Risk Patients (6 to 64 Years) Aged Out No longer eligible based on patient's age to complete this topic RSV under 20 months Aged Out No longe r eligible based on patient's age to complete this topic Rotavirus Vaccines Aged Out No longer eligible based on patient's age to complete this topic Procedures Procedure Name Priority Date/Time Associated Diagnosis Comments ADJUNCTIVE GENERAL SERVICES - PROFESSIONAL VISITS - CASE PRESENTATION, SUBSEQUENT TO DETAILED AND EXTENSIVE TREATMENT PLANNING Routine 03/11/2024 2:30 PM EST NO CHARGE PROCEDURE Routine 03/11/2024 2 :30 PM EST COMPREHENSIVE PERIODONTAL EVALUATION - NEW OR ESTABLISHED PATIENT Routine 02/13/2024 2:00 PM EST Dental caries Gingivitis PERIODIC ORAL EVALUATION - ESTABLISHED PATIENT Routine 02/13/2024 2:00 PM EST Dental caries Gingivitis INTRAORAL - PERIAPICAL EACH ADDITIONAL RADIOGRAPHIC IMAGE Routine 02/13/2024 2:00 PM EST Dental caries Gingivitis INTRAORAL - PERIAPICAL FIRST RADIOGRAPHIC IMAGE Routine 02/13/2024 2:00 PM EST Dental caries Gingivitis BITEWINGS - 4 RADIOGRAPHIC IMAGES Routine 02/13/2024 2:00 PM EST Dental caries Gingivitis ORAL HYGIENE INSTRUCTIONS Routine 02/13/2024 2:00 PM EST Dental caries Gingivitis ADJUNCTIVE GENERAL SERVICES - PROFESSIONAL VISITS - CASE PRESENTATION, SUBSEQUENT TO DETAILED AND EXTENSIVE TREATMENT PLANNING Routine 02/13/2024 2:00 PM EST Dental caries Gingivitis PROPHYLAXIS - ADULT Routine 02/13/2024 2 :00 PM EST Dental caries Gingivitis HM PAP/HPV Routine 01/25/2024 12:00 AM EST CHLAMYDIA/N. GONORRHOEAE RNA, TMA, UROGENITAL Routine 10/04/2022 10:58 AM EDT Dysuria PANORAMIC RADIOGRAPHIC IMAGE Routine 05/03/2016 12:00 AM EST from Last 3 Months or Most Recently Relevant to Health Maintenance Results * HM PAP/HPV (01/25/2024 12:00 AM EST) us Historical Provider MD HEALTH MAINTENANCE Final Result * Chlamydia/N. Gonorrhoeae RNA, TMA, Urogenitial (10/04/2022 10:58 AM EDT) Pathologist [facility] CT PCR NOT DETECTED Not Detect. [facility] Comment:A not detected test result does not exclude the possibilityof infection because test results can be affected byimproper specimen collection, concurrent antibiotic therapy,or the number of organisms in the specimen which may bebelow the sensitivity of the test. As with many diagnostictests, results from the Xpert CT/NG assay should beinterpreted in conjunction with other laboratory andclinical data available to the clinician.Xpert CT/NG performance has not been evaluated in patientsless than 14 years of age. The assay should not be used forthe evaluationof suspected sexual abuse or for other medico-legalindications. Additional testing is recommended in anycircumstance when false positive or false negative resultscould lead to adverse medical, social or psychologicalconsequences. NG PCR NOT DETECTED Not Detect. [facility] Comment:A not detected test result does not exclude the possibilityof infection because test results can be affected byimproper specimen collection, concurrent antibiotic therapy,or the number of organisms in the specimen which may bebelow the sensitivity of the test. As with many diagnostictests, results from the Xpert CT/NG assay should beinterpreted in conjunction with other laboratory andclinical data available to the clinician.Xpert CT/NG performance has not been evaluated in patientsless than 14 years of age. The assay should not be used forthe evaluationof suspected sexual abuse or for other medico-legalindications. Additional testing is recommended in anycircumstance when false positive or false negative resultscould lead to adverse medical, social or psychologicalconsequences. Urine (Urine, Random) 10/04/2022 10:58 AM EDT 10/04/2022 6:39 PM EDT Narrative [facility] - 10/06/2022 2:15 PM EDT Urine [facility] MICROBIOLOGY - GENERAL ORDER KALYN Final Result [facility] [address] [place] [address] [phone] from Last 3 Months or Most Recently Relevant to Health Maintenance Insurance * Guarantor: Rajan [place] I Account Type Relation to Patient Date of Phone Billing Address Personal/Family Self [address] [place] [address] HSN PARTIAL [facility] - HSN PARTIAL (MEDICAID) * Guarantor: Rajan [place] I Account Type Relation to Patient Date of Phone Billing Address Personal/Family Self [address] [place] [id number] * Guarantor: Rajan [place] I Account Type Relation to Patient Date of Phone Billing Address Personal/Family Self [address] [place] [id number] * Guarantor: Rajan [place] I Account Type Relation to Patient Date of Phone Billing Address Personal/Family Self [address] [place] [address] Care Teams Crystal Flat Grinder Relationship Specialty Start Date End Date CrosbyCarolina kim [facility] [address] [place] [phone] PCP - General Family Medicine 02/02/22
--- OUTSIDE RECORDS SUMMARY | 2024-03-26 18:11 | XMS_ITS ---
Author Name [facility] Organization Unknown Problems Problem Status Onset Date Problem Type Date of Resolution Source Medium-chain acyl-CoA dehydrogenase deficiency (HCC) active EncounterDiagnosisAct [facility] Genetic testing active [facility]DiagnosisAct [facility] MCAD (medium-chain acyl-CoA dehydrogenase deficiency) active 2024-01-[address] [facility] Alpha thalassemia trait active 2024-01-[address] [facility] Supervision of normal first , antepartum active 2024-01-08 ProblemAct [facility] Obesity complicating childbirth active 2024-01-08 ProblemAct [facility] Immunizations Vaccine Date Source Lot Number Status Influenza trivalent, MDCK, 0 .5mL, preservative free (Flucelvax) 6mo and older 01/25/2024 [facility] [id number] completed
--- OUTSIDE RECORDS SUMMARY | 2024-03-26 18:11 | XMS_ITS | Encounter Summary ---
Author Organization [facility] Address [address] [place] [address] Care Team Providers Care Director Of Trauma Name Role Phone [facility] Primary Care Provider [phone] Encounter Details Date Type Department Care Team (Late Contact Info) Description 03/07/2024 3:55 PM EST Lab Draw Station - [address] Supervision of normal first , antepartum Social History Tobacco Use Types Packs/Day Years Used Date Smoking Tobacco: Never Smokeless Tobacco: Never Estimated Date of Delivery Comme nts Yes 07/26/2024 Based on Ultraso und Sex and Gender Information Value Date Recorded Sex Assigned at Female 01/29/2024 3:32 PM EST Gender Identity Not on file Sexual Orientation Not on file Job Start Date Occupation Industry Not on file Not on file Not on file documented as of this encounter Progress Notes * Sabina Baldwin MD - 03/07/2024 3:55 PM EST negative documented in this encounter Plan of Treatment Upcoming Encounters Date Type Department Care Team (Late Contact Info) Description 03/28/2024 4:00 PM EST Routine Obstetrics and Gynecology - [address] [phone] Elizabeth Altamirano CNM [address] [place] [address] 04/25/2024 4:00 PM EST Routine Obstetrics and Gynecology - [address] [phone] Elizabeth Altamirano, [address] 05/23/2024 4:00 PM EDT Routine Obstetrics and Gynecology - [address] [phone] Elizabeth Altamirano, [address] documented as of this encounter Procedures Procedure Name Priority Date/Time Associated Diagnosis Comments ALPHA FETOPROTEIN, MATERNAL Routine 03/07/2024 4:07 PM EST Supervision of normal first , antepartum documented in this encounter Results * Alpha fetoprotein, maternal (03/07/2024 4:07 PM EST) Physician Phone Number Not Provided 03/11/2024 11:41 AM EST [facility] Notes to Laboratory Not Provided 03/11/2024 11:41 AM EST [facility] Weight (lbs) 183 03/11/2024 11:41 AM EST [facility] Expected Due Date (MM/DD/YYYY) [id number] 03/11/2024 11:41 AM EST [facility] Expected Due Date Based On? LMP 03/11/2024 11:41 AM EST [facility] Twin ? No - Singletons 03/11/2024 11:41 AM EST [facility] Race 03/11/2024 11:41 AM EST [facility] Insulin Dependent Diabetic? Not Provided 03/11/2024 11:41 AM EST [facility] Does Patient Currently Smoke Cigarettes? No 03/11/2024 11:41 AM EST [facility] Repeat Screen for Current ? No 03/11/2024 11:41 AM EST [facility] Previous w/ Neural Tube Defect? No 03/11/2024 11:41 AM EST [facility] IVF ? No 03/11/2024 11:41 AM EST [facility] Screen Result Negative Negative 03/11/2024 11:41 AM EST [facility] Age at ELIU (years) 23 03/11/2024 11:41 AM EST [facility] Gestational Age (weeks) 19 03/11/2024 11:41 AM EST [facility] Gestational Age (days) 6 03/11/2024 11:41 AM EST [facility] Weight (lbs) 183 03/11/2024 11:41 AM EST [facility] Multiple Gestation Single 03/11/2024 11:41 AM EST [facility] Ethnic Origin 03/11/2024 11:41 AM EST [facility] Insulin Dependent Diabetes Not Provided 03/11/2024 11:41 AM EST [facility] Smoker? No 03/11/2024 11:41 AM EST [facility] AFP 52.6 ng/mL 03/11/2024 11:41 AM EST [facility] AFP MOM 1.11 03/11/2024 11:41 AM EST [facility] Gestational Age Method ELIU 03/11/2024 11:41 AM EST [facility] Comment:The gestational age is based on an ELIU of 07/26/24. Interpretation SeeBelow 03/11/2024 11:41 AM EST [facility] Comment: This is the initial sample received at [facility] for MSAFP SCREEN NEGATIVE FOR NEURAL TUBE DEFECTS. Additional Test Information: The MSAFP does not provide a risk estimate or a diagnosis. Incorrect or missing information may considerably alter results. A positive report is indicated when the AFP MOM is greater than or equal to 2.20. Maternal weights less than 65 lbs or greater than 440 lbs are truncated and the AFP MOM is not adjusted beyond those limits. Assessment is adjusted for insulin-dependent diabetic status, weight, race and smoking. Previous pregnancies affected with a neural tube defect may significantly affect results. Test performed at [facility], [address], [place], [place] [address] ? [phone] Norma Chau MD, PhD - Box Closing Machine Operator Blood Venous blood specimen / Unknown Venipuncture / Unknown 03/07/2024 4:07 PM EST 03/07/2024 4:07 PM EST Sabina Baldwin MD LAB BLOOD ORDERABLE [facility] [address] [place] [address] documented in this encounter Visit Diagnoses Diagnosis Supervision of normal first , antepartum documented in this encounter Care Teams Director Of Trauma Relationship Specialty Start Date End Date [facility] [address] [place] [phone] PCP - General Family Medicine 01/05/24 documented as of this encounter
--- OUTSIDE RECORDS SUMMARY | 2024-03-26 18:11 | XMS_ITS | Clinical Summary ---
Author Organization [facility] [address] [place] [address] [place] [phone] Phone Care Team Providers Care Produce Runner Name Role Phone Carolina Moody Primary Care Provider [phone] Allergies No known active allergies Medications Medication Sig Dispensed Refills Start Date End Date Status aspirin 81 mg EC tablet Take 1 Tablet by mouth daily for 180 days. - Oral Active vitamin iron fum-folic acid 27-0.8 mg per tablet Take 1 tablet by mouth 1 (one) time each day. 90 each 3 03/07/2024 Active vitamin iron fum-folic acid 27-0.8 mg per tablet Take 1 tablet by mouth 1 (one) time each day. 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 This will determine if dietary modification is necessary. This is particularly important during . Some data suggest women with MCAD deficiency are at an increased risk for HELLP syndrome during . A referral will be sent as soon as possible. Supervision of normal first , antepartu m 01/08/2024 Overview (01/25/2024): 1. [facility] site: [place] 2. Delivery site: [facility] 3. Mobile Mommas: 4. Dating criteria: 5. Blood type: A pos 6. Genetic screening: low-risk male 6. GBS: Date: 7. FOB name: Bryn 8. Plans A. Epidural or other pain management - B. Labor support identified - C. Tdap - Date:, Flu - Date: 01/25/2024 D. Breast or Bottle feed: E. Baby's name - F. Circumcision - 9. Hospital Course: Obesity complicating childbirth 01/08/2024 Overview (01/12/2024): BMI 34 HgbA1C and 1 hour GTT at initial labs - 5.2/96 ASA 162mg at 12 weeks until delivery Detailed anatomy ultrasound Repeat GTT 24-28 weeks if early is normal BMI of 50 by [place] [facility] [place]- Lovenox if CS and BMI >35 Estimated Date of Delivery Comme nts Yes 07/26/2024 Based on Ultraso und Encounters Date Type Department Care Team Description 03/15/2024 2:00 PM EST Ancillary Procedure Maternal Medicine - [address] [phone] Obesity complicating childbirth 03/07/2024 3:55 PM EST Lab Draw Station - [address] Supervision of normal first , antepartum 03/07/2024 3:30 PM EST Routine Obstetrics and Gynecology - [address] [phone] Sabina Baldwin MD Supervision of normal first , antepartum (Primary Dx); Obesity complicating childbirth 01/31/2024 1:00 PM EST - 01/31/2024 11:59 PM EST Hospital Encounter [facility] OB Ultrasound [address] [place] [address] Hereditary familial disease affecting management of mother and possibly affecting fetus, antepartum, single or unspecified fetus (Primary Dx) Discharge Disposition: Home or Self Care 01/26/2024 2:00 PM EST Ancillary Procedure Maternal Medicine - [address] [phone] , abdominal, with intrauterine 01/25/2024 11:30 AM EST Initial Obstetrics and Gynecology - [address] [phone] Yesenia Celestin CNM GA: 13w6d 01/25/2024 Telephone Obstetrics and Gynecology - [address] [phone] Ale Garcia CNM Advice Only 01/17/2024 Telephone Obstetrics and Gynecology - [address] [phone] Katina Ellis ID 01/10/2024 12:55 PM EST Lab Draw Station - [address] , abdominal, with intrauterine (Primary Dx) 01/08/2024 2:00 PM EST Office Visit Obstetrics and Gynecology - [address] [phone] Yesenia Celestin CNM , abdominal, with intrauterine (Primary Dx); Obesity complicating childbirth 01/08/2024 Telephone Obstetrics and Gynecology - [address] [phone] Naomi Marques RN from Last 3 Months Immunizations Name Administration Dates Next Due Influenza trivalent, MDCK, 0 .5mL, preservative free (Flucelvax) 6mo and older 01/25/2024 Medical History Medical History Date Comments [place] teeth removed Anemia Ovarian cyst Depression Anxiety Family History Medical History Relation Name Comments Depression Father Diabetes Father Uterine cancer Maternal Grandmother Thyroid disease Mother Diabetes Paternal Grandmother No Known Problems Sister Relation Name Status Comments Father Alive Maternal Grandfather Maternal Grandmother Alive Mother Alive Paternal Grandfather Alive Paternal Grandmother Alive Sister Alive Social History Tobacco Use Types Packs/Day Years Used Date Smoking Tobacco: Never Smokeless Tobacco: Never Tobacco Cessation:Counseling Given: Not Answered Estimated Date of Delivery Comme nts Yes 07/26/2024 Based on Ultraso und Sex and Gender Information Value Date Recorded Sex Assigned at Female 01/29/2024 3:32 PM EST Gender Identity Not on file Sexual Orientation Not on file Job Start Date Occupation Industry Not on file Not on file Not on file Obstetrics History Para Term AB IAB SAB Ectopic Multiple Livin g Live Births 1 Date Outcome GA Total Labor Labor/2nd/3rd Weight Sex Type Anes PTL Zuleyma A1 A5 Name Clin Current Summary Episode Dates Number of Fetuses Estimated Date of Delivery 01/08/2024 - Present (03/26/2024) 1 07/26/2024 (set by Yesenia Celestin CNM on 01/26/2024 based on Ultrasound on 01/26/2024) Dating Summary Based On ELIU [place] Diff Last Menstrual Period on 10/31/2023 (Exact Date) 08/06/2024 -1w4d Ultrasound on 01/26/2024 07/26/2024 Working GA:14w0d Alternate ELIU Entry 08/04/2024 -1w2d Comment:Date entered prior t o episode creation Vitals Pregravid Weight Height TWG (As of 03/26/2024) Pregrav id BMI 82.1 kg (181 lb) 0.998 kg (2 lb 3.2 oz) Date GA Fund Present FHR Mvmt BP Weight Edema Alb Glu Ket Dil/ Eff/Sta 4 14w5d Inpatient data not displayed here. See encounter summary. Notes Progress Notes - Routine Pre - 03/07/2024 - GA:19w6d 03/07/2024 - 19w6d - Sabina Clarke MD OB Visit: Vitals BP: 114/68 Weight: 83.1 kg (183 lb 3.2 oz) Assessment Heart Rate: 150 Fundal Height (cm): 20 cm Movement: Present Vaginal Drainage Leaking Fluid: No 23 y.o. old female at 19w6d. Doing well. + FM. No LOF/VB/cramping. No concerns. Taking ASA and PNV. Otherwise healthy . Her BP is reviewed and is Normal. Aneuploidy screening reviewed; it is Normal. MSAFP ordered. She does not require a urine drug screen. Signs and symptoms of labor reviewed including reasons to call triage. Problem List reviewed and updated. RTO 4 weeks. Sabian Baldwin MD on 03/07/2024 at 3:48 PM EST Progress Notes - Hospital En counter - 01/31/2024 - GA:14w5d 01/31/2024 - 14w5d - Shanti Cloud CGC Name: Leana Kunz Date of : 2000 Date of Service: 01/31/2024 Leana Kunz had a genetic consultation by phone to discuss her carrier screening results. Patient's obstetric provider is Yesenia Celestin. 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 There is no known history of MCAD deficiency or SIDS. -The patient was born in [place] -The couple is of ancestry. Consanguinity is denied. -The remainder of the family medical history is non-contributory. Discussion: During the remainder of the session we reviewed the carrier screening results and the significance to the as well as her health. See summaries below. These conditions are both autosomal recessive in nature so testing of her partner is necessary to know risk to the fetus. His testing was performed on 01/26/24. Results are pending. If the fetus is found to be at increased risk based upon his results, diagnosis via amniocentesis would be available. This procedure was reviewed, including the procedure-related risk for miscarriage of up to 1 in 300. These conditions are also part of the screening program. Alpha-thalassemia With regard to alpha-thalassemia, we discussed that the patient has alpha- thalassemia trait/minor(a-a-). Individuals with alpha-thalassemia minor may be incorrectly diagnosed with iron deficiency. Thus, she should not be given iron supplementation unless iron deficiency is confirmed. Alpha-thalassemia is an autosomal recessive hemoglobinopathy causing decreased alpha-globin chain synthesis. There are different forms of alpha-thalassemia based upon the number of alpha-globin chains deleted: the most severe form is hydrops fetalis which is a lethal condition in which all alpha genes are inactive (--/--); hemoglobin H disease (a-/--) which results in moderately severe anemia that can require transfusion; alpha-thalassemia minor/trait (a-/a- or aa/--) which can cause mild microcytic anemia; and silent carriers (a-/aa) which have no clinical features. Alpha-thalassemia is inherited in an autosomal recessive manner, so we need to know her partner's genotype to know the risks to the fetus. We discussed the fetus is not at risk for hydrops fetalis since she does not have the -- genotype on either allele. Based upon ethnicity, if he has alpha-thalassemia minor, he is unlikely to be a carrier of the aa/-- genotype. If he did, the baby would be at risk for hemoglobin H disease. Medium chain acyl-CoA dehydrogenase deficiency (MCAD deficiency) This is an autosomal recessive disorder of fatty acid oxidation. Untreated, this can result severe hypoglycemia and subsequent seizures, vomiting, lethargy, liver disease, and . With regard to the , if her partner is a carrier, the baby would have a 50% chance for being affected. diagnosis via amniocentesis would be possible. The baby will also be screened at . We then discussed the significance to her [...] We recommend she meet with a medical collections representative as soon as possible for a full metabolic work-up. This will determine if dietary modification is necessary. This is particularly important during . Some data suggest women with MCAD deficiency are at an increased risk for HELLP syndrome during . A referral will be sent as soon as possible. We also reviewed her other family members are at increased risk for also being carriers and/or affected with MCAD. We are available to coordinate testing, if desired. Last, it was discussed that there is a 3-5% background risk for a fetus having defects and no testing can guarantee a perfectly healthy baby. Patient Decision: After careful consideration of her options, the patient will wait for her partner's results prior to making decisions on invasive testing. These will be sent to her provider. She would like to meet with a medical collections representative. A referral will be sent. Recommendations: MSAFP only at 16-18 weeks Anatomy ultrasound at 19-20 weeks Other follow-up as clinically indicated Thank you for allowing us to participate in the care of this patient. Please do not hesitate to call us at [phone] with any questions or concerns. Sincerely, Shanti Cloud, M.S. Licensed Genetic Counselor Progress Notes - Initial Pre - 01/25/2024 - GA:13w6d 01/25/2024 - 13w6d - Yesenia Townsend CNM OB 12 week appt IP: S: Leana is a 23 y.o. year old here for IP visit with her patient and partner. Her is planned. She and the father of the baby are happy. Patient's last menstrual period was 10/31/2023 (exact date). She is certain of her LMP with regular cycles. is currently dated by LMP only. She complains of no sx at present . She denies vaginal bleeding or cramping. Flu vaccine: accepted FOB will do [id number] today and will schedule genetic consult with Shanti Cloud due to two genes for MCAD deficiency O: Blood pressure 104/60, pulse 100, resp. rate 16, weight 82.7 kg (182 lb 6.4 oz), last menstrual period 10/31/2023. See OB physical and labs. Vitals BP: 104/60 Weight: 82.7 kg (182 lb 6.4 oz) No results found for: ABORH Lab Results Component Value Date RH Positive 01/10/2024 A: at 12w4d weeks gestation. 1. Supervision of normal first , antepartum 2. Need for immunization against influenza P: Pap obtained today. Genprobe obtained today. Oriented to THoNE MG and anticipated course. Discussed collaborative practice and [facility] delivery. Reviewed healthy eating and normal weight gain in . Encouraged patient to push PO fluids. Counseled about warning signs of the first trimester and how to contact pipeline superintendent division provider. Discussed the benefits of breast feeding and strongly encouraged to consider this. RTO 4 weeks. The patient does not require anesthesia consult. This patient's VTE risk status is low. Mobile Depression Scale: In the Past 7 Days I have been able to laugh and see the funny side of things.: As much as I always could I have looked forward with enjoyment to things.: As much as I ever did I have blamed myself unnecessarily when things went wrong.: Not very often I have been anxious or worried for no good reason.: Yes, sometimes I have felt scared or panicky for no good reason.: No, not at all Things have been getting on top of me.: No, most of the time I have coped quite well I have been so unhappy that I have had difficulty sleeping.: Not at all I have felt sad or miserable.: No, not at all I have been so unhappy that I have been crying.: No, never The thought of harming myself has occurred to me.: Never Mobile Depression Scale Total: 4 Yesenia Celestin CNM on 01/25/2024 at 12:27 PM EST Last Filed Vital Signs Vital Sign Reading Time Taken Comments Blood Pressure 114/68 03/07/2024 3:34 PM EST Pulse 95 03/07/2024 3:34 PM EST Temperature - - Respiratory Rate 14 03/07/2024 3:34 PM EST Oxygen Saturation - - Inhaled Oxygen Concentration - - Weight 83.1 kg (183 lb 3.2 oz) 03/07/2024 3:34 P M EST Height 154.9 cm (5' 1 ) 01/08/2024 2:17 PM EST Body Mass Index 34.62 01/08/2024 2:17 PM EST Plan of Treatment Upcoming Encounters Date Type Department Care Team (Late st Contact Info) Description 03/28/2024 4:00 PM EST Routine Obstetrics and Gynecology - [address] [phone] Elizabeth Altamirano [address] 04/25/2024 4:00 PM EST Routine Obstetrics and Gynecology - [address] [phone] Elizabeth Altamirano [address] 05/23/2024 4:00 PM EDT Routine Obstetrics and Gynecology - [address] [phone] Elizabeth Altamirano [address] Health Maintenance Due Date Last Done Comments Pneumococcal Vaccine: Pediatrics (0 to 5 Years) and At-Risk Patients (6 to 64 Years) (1 of 2 - PCV) 2008 COVID-19 Vaccine (2 - 2023- season) 2023 07/15/2020 Annual Well Child Visit (3-21 years old) 12/29/2023 Cholesterol Screening (Lipid Panel) 12/29/2023 Social Influencers of Health Screening 12/29/2023 Depression Screening 07/02/2024 07/03/2023 Gonorrhea/Chlamydia Screening 01/24/2025 01/25/2024, 10/04/2022 Cervical Cancer Screening: Pap Smear 01/24/2027 01/25/2024 DTaP,Tdap,and Td Vaccines (7 - Td or Tdap) 06/15/2028 06/15/2018, 06/27/2007, 06/04/2004, Additional history exists Hepatitis B Vaccines Completed 07/03/2003, 05/02/2003, 02/06/2003 HIB Vaccines Completed 06/04/2004, 04/07, 02/06/2003 IPV Vaccines Completed 04/02/2007, 06/05, 05/02/2003, Additional history exists HPV Vaccines Completed 04/18/2016, 04/06, 12/17/2013 Hepatitis A Vaccines Completed 04/18/2016, 04/17/19 16 Meningococcal ACWY Vaccine Completed 02/09, 12/17/2013, 06/09/2003, Additional history exists HIV Screening Completed 01/10/2024 Hepatitis C Screening Completed 01/10/2024 Influenza Vaccine Completed 01/25/2024, , 02/10/2020, Additional history exists RSV Immunization Patients Under 20 months Aged Out No longer eligible based on patient's age to complete this topic Procedures Procedure Name Priority Date/Time Associated Diagnosis Comments US OB DETAILED SINGLE OR FIRST GESTATION Routine 03/15/2024 2:50 PM EST Obesity complicating childbirth ALPHA FETOPROTEIN, MATERNAL Routine 03/07/2024 4:07 PM EST Supervision of normal first , antepartum US OB LESS 14 WKS SINGLE OR FIRST GESTATION Routine 01/26/2024 2:19 PM EST , abdominal, with intrauterine US OB LESS 14 WKS NUCHAL MEASUREMENT Routine 01/26/2024 2:19 PM EST , abdominal, with intrauterine CHLAMYDIA TRACHOMATIS AND NEISSERIA GONORRHOEAE BY TMA, THINPREP Routine 01/25/2024 12:27 PM EST Supervision of normal first , antepartum PAP SMEAR Routine 01/25/2024 12:27 PM EST Supervision of normal first , antepartum DRUG ABUSE SCREEN 8A PANEL, URINE Routine 01/10/2024 3:19 PM EST , abdominal, with intrauterine RUBELLA ANTIBODY, IGM Routine 01/10/2024 3:19 PM EST , abdominal, with intrauterine RUBELLA ANTIBODY IGG Routine 01/10/2024 3:19 PM EST , abdominal, with intrauterine TREPONEMA PALLIDUM ANTIBODY WITH REFLEX TO RPR AND PARTICLE AGGLUTINATION Routine 01/10/2024 3:19 PM EST , abdominal, with intrauterine GTT GESTATIONAL 1 HOUR Routine 3:19 PM EST , abdominal, with intrauterine HEPATITIS C ANTIBODY Routine 01/10/2024 3:19 PM EST , abdominal, with intrauterine HIV 1, 2 ANTIBODY, P24 ANTIGEN WITH REFLEX TO DIFFERENTIATION Routine 01/10/2024 3:19 PM EST , abdominal, with intrauterine TYPE AND SCREEN Routine 01/10/2024 3:19 PM EST , abdominal, with intrauterine HEPATITIS B CORE ANTIBODY IGM Routine 01/10/2024 3:19 PM EST , abdominal, with intrauterine GLUCOSE TOLERANCE TEST, 1H GESTATION Routine 01/10/2024 3:19 PM EST , abdominal, with intrauterine HEMOGLOBIN A1C Routine 01/10/2024 3:19 PM EST , abdominal, with intrauterine CULTURE URINE Routine 01/10/2024 3:19 PM EST , abdominal, with intrauterine RUBELLA ANTIBODY IGG Routine 01/10/2024 3:18 PM EST , abdominal, with intrauterine VARICELLA ZOSTER ANTIBODY IGG Routine 01/10/2024 3:18 PM EST , abdominal, with intrauterine HEPATITIS B SURFACE ANTIGEN WITH CONFIRMATION Routine 01/10/2024 2:24 PM EST , abdominal, with intrauterine EXTERNAL CLINICAL LAB 01/10/2024 EXTERNAL CLINICAL LAB 01/10/2024 EXTERNAL CLINICAL LAB 01/10/2024 from Last 3 Months Results * US OB Detailed Single or First Gestation (03/15/2024 2:50 PM EST) Anatomical Region Laterality Modality Body Ultrasound 03/15/2024 12:4 4 PM EST Narrative 03/18/2024 10:29 AM EST OBSTETRICS REPORT ?(Signed Final 03/18/2024 10:29 am) PATIENT INFO: ID #: ? [id number] ? : ??[birth year] (23 yrs)(F) Name: ? LEANA KUNZ ? Visit Date: 03/15/2024 12:44 pm PERFORMED BY: Attending: ?Jerrica Marroquin MD Performed By: ? Keaton Mars RDMS Referred By: ?Yesenia LongNAngelinaM Ref. Address: ? [address] ? [place] [address] Location: ? [facility] SERVICE(S) PROVIDED: US Level II complete (Targeted OB) ?57098 INDICATIONS: Obesity complicating , 2nd ?O99.212 trimester Encounter for screening for ?Z36.3 malformations 21 weeks gestation of ?Z3A.21 TECHNIQUE/SCAN QUALITY: Technique: ?? Transabdominal Scan ? Satisfactory Quality: OB HISTORY: : ?1 ? Term: ?? 0 ?Scooby: ?? 0 ?SAB: ?? 0 TOP: ?0 ? Ectopic: ??0 ?Livin VITAL SIGNS: Weight (lb) ?? Height ?BMI 182 ? 5'1 ?34.38 EVALUATION: Number Of Fetuses: ? 1 Preg. Location: ?Intrauterine Heart Rate(bpm): ?? 146 Cardiac Activity: ?Observed Appears regular Presentation: ?Cephalic Placenta Location: ?Posterior Appearance: ?Grade 1 Relation to CVX: ? No previa Cord Insertion: ?Normal appearance Amniotic Fluid MICHELE FV: ?Within Normal Limits Comment: ?A >2 x 2 cm pocket of fluid is noted. BIOMETRY: BPD: ?48.2 ??mm ? G.Age: ?? 20w 4d ?31 ??% HC: ?183.8 ??mm ? G.Age: ?? 20w 5d ?29 ??% AC: ?156.1 ??mm ? G.Age: ?? 20w 5d ?35 ??% FL: ? 36.5 ??mm ? G.Age: ?? 21w 4d ?62 ??% HUM: ?32.5 ??mm ? G.Age: ?? 20w 6d ?44 ??% CER: ?22.1 ??mm ? G.Age: ?? 21w 0d ?52 ??% NB: ? 6.99 ??mm ? 47 ??% ? > 1 ??MoM LV: ?5.7 ??mm CM: ?5.7 ??mm IOD: ?14.2 ??mm ? G.Age: ?? 21w 1d ?68 ??% OOD: ?33.9 ??mm ? G.Age: ?? 20w 2d ?48 ??% CI: ? 69.99 ??% ? 70 - 86 FL/HC: ? 19.9 ??% ? 15.9 - 20.3 HC/AC: ? 1.18 ?1.06 - 125 FL/BPD: ?75.7 ??% FL/AC: ? 23.4 ??% ? - Est. FW: ? 398 ??gm ? 0 lb 14 oz ? 49 ??% GESTATIONAL AGE: LMP: ? 19w 3d ?Date: ??10/31/23 ?ELIU: ?? 08/06/24 U/S Today: ? 20w 6d ?ELIU: ?? 07/27/24 Best: ?21w 0d ?? Det. By: ??C R L 1st ?ELIU: ?? 07/26/24 ? (01/26/24) DETAILED ANATOMY: Head / Neck Cranial Vault: ?Normal appearance Cavum Septi Pellucidi: ??Normal appearance Parenchyma: ? Normal appearance R. Lat. Ventricle: ?Normal appearance L. Lat. Ventricle: ?Normal appearance Corpus Callosum: ?Normal appearance Midline Falx: ? Normal appearance R. Choroid Plexus: ?Normal appearance L. Choroid Plexus.: ? Normal appearance Cerebellum: ? Normal appearance CCisterna Magna: ?Normal appearance Nuchal Fold: ?Normal appearance Neck: ? Normal appearance Face Face Profile: ? Normal appearance Nasal Bone: ? Normal appearance Coronal Face: ? Normal appearance Lips: ? Normal appearance Nose: ? Normal appearance Lenses: ? Normal appearance Orbits: ? Normal appearance Palate: ? Suboptimal views Heart Cardiac Activity: ? Normal appearance Cardiac Rhythm: ? Normal appearance 4 Chamber View: ? Normal appearance R. Outflow Tract: ? Normal appearance L. Outflow Tract: ? Normal appearance Interventr. Septum: ? Normal appearance 3 Vessel View: ?Normal appearance 3V Trachea View: ?Normal appearance Cardiac Situs: ?Normal appearance Aortic ??Arch: ? Normal appearance SVC: ?Normal appearance IVC: ?Normal appearance Ductal ??Arch: ? Normal appearance Crossing G. Ves.: ? Normal appearance Comment: ? The cardiac axis is 35.19 degrees Thorax Lungs: ?Normal appearance Cardiac [place]: ? Normal appearance Diaphragm: ?Normal appearance Thoracic Contour: ? Normal appearance Abdomen Situs: ?Normal appearance Stomach: ?Normal appearance Bowel: ?Normal appearance Liver: ?Normal appearance Abdominal Wall: ? Normal appearance Urinary Bladder: ?Normal appearance R. Kidney: ?Normal appearance L. Kidney: ?Normal appearance R. Renal Artery: ?Normal appearance L. Renal Artery: ?Normal appearance Umbilical Cord: ? Normal Appearance UC Vessel Num.: ? Normal 3VC Cord Insertion: ? Normal appearance Spine Cervical: ? Normal appearance Thoracic: ? Normal appearance Lumbar: ? Normal appearance Sacral: ? Normal appearance Shape / Curvature: ?Normal appearance Over. Soft Tissue: ?Normal appearance Vertebral Body: ? Normal appearance Extremities R. Humerus: ? Normal appearance L. Humerus: ? Normal appearance R. Forearm: ? Normal appearance L. Forearm: ? Normal appearance R. Hand: ?Normal appearance L. Hand: ?Normal appearance R. Femur: ? Normal appearance L. Femur: ? Normal appearance R. Lower Leg: ? Normal appearance L. Lower Leg: ? Normal appearance R. Foot: ?Normal appearance L. Foot: ?Normal appearance Other Genitalia: ?Male CERVIX UTERUS ADNEXA: Cervix Within Normal Limits Abdominally Right Ovary Size(cm) ? 3.51 ?? x ?? 2.9 ?x ??1.84 ?Vol(ml): 9.81 Normal in size and appearance. It is found between the uterus and the pelvic sidewall. Left Ovary Size(cm) ? 3.33 ?? x ?? 2.18 ?? x ??2.17 ?Vol(ml): 8.25 Normal in size and appearance. It is found between the uterus and the pelvic sidewall. COMMENTS: Ms. Kunz is being seen for a detailed ultrasound for a BMI of 34. - Her medical history is not contributory. This is her first . - She had cell free DNA screening performed. Results were low-risk for all conditions assessed. MSAFP was 1.11 MoMs. Ultrasound findings: The biometry and anatomical survey are appropriate for the gestational age. ??There are no markers of aneuploidy. - The patient declined vaginal ultrasound to assess cervical length for risk of . - Plan: No additional ultrasounds have been scheduled. Follow up as clinically indicated. Jerrica Marroquin MD Electronically Signed Final Report ?? 03/18/2024 10:29 am Procedure Note Jerrica Marroquin MD - 03/18/2024 OBSTETRICS REPORT (Signed Final 03/18/2024 10:29 am) PATIENT INFO: ID #: [id number] : [birth year] (23 yrs)(F) Name: LEANA KUNZ Visit Date: 03/15/2024 12:44 pm PERFORMED BY: Attending: Jerrica Marroquin MD Performed By: Keaton Mars RDMS Referred By: Yesenia Celestin C.N.M Ref. Address: [address] [place] [id number] Location: [facility] SERVICE(S) PROVIDED: US Level II complete (Targeted OB) 50016 INDICATIONS: Obesity complicating , 2nd O99.212 trimester Encounter for screening for Z36.3 malformations 21 weeks gestation of Z3A.21 TECHNIQUE/SCAN QUALITY: Technique: Transabdominal Scan Satisfactory Quality: OB HISTORY: : 1 Term: 0 Scooby: 0 SAB: 0 TOP: 0 Ectopic: 0 Livin VITAL SIGNS: Weight (lb) Height BMI 182 5'1 34.38 EVALUATION: Number Of Fetuses: 1 Preg. Location: Intrauterine Heart Rate(bpm): 146 Cardiac Activity: Observed Appears regular Presentation: Cephalic Placenta Location: Posterior Appearance: Grade 1 Relation to CVX: No previa Cord Insertion: Normal appearance Amniotic Fluid MICHELE FV: Within Normal Limits Comment: A >2 x 2 cm pocket of fluid is noted. BIOMETRY: BPD: 48.2 mm G.Age: 20w 4d 31 % HC: 183.8 mm G.Age: 20w 5d 29 % AC: 156.1 mm G.Age: 20w 5d 35 % FL: 36.5 mm G.Age: 21w 4d 62 % HUM: 32.5 mm G.Age: 20w 6d 44 % CER: 22.1 mm G.Age: 21w 0d 52 % NB: 6.99 mm 47 % > 1 MoM LV: 5.7 mm CM: 5.7 mm IOD: 14.2 mm G.Age: 21w 1d 68 % OOD: 33.9 mm G.Age: 20w 2d 48 % CI: 69.99 % 70 - 86 FL/HC: 19.9 % 15.9 - 20.3 HC/AC: 1.18 1.06 - 1.25 FL/BPD: 75.7 % FL/AC: 23.4 % Est. FW: 398 gm 0 lb 14 oz 49 % GESTATIONAL AGE: LMP: 19w 3d Date: 10/31/23 ELIU: 08/06/24 U/S Today: 20w 6d ELIU: 07/27/24 Best: 21w 0d Det. By: Cleo Vargas 1st ELIU: 07/26/24 (01/26/24) DETAILED ANATOMY: Head / Neck Cranial Vault: Normal appearance Cavum Septi Pellucidi: Normal appearance Parenchyma: Normal appearance R. Lat. Ventricle: Normal appearance L. Lat. Ventricle: Normal appearance Corpus Callosum: Normal appearance Midline Falx: Normal appearance R. Choroid Plexus: Normal appearance L. Choroid Plexus.: Normal appearance Cerebellum: Normal appearance CCisterna Magna: Normal appearance Nuchal Fold: Normal appearance Neck: Normal appearance Face Face Profile: Normal appearance Nasal Bone: Normal appearance Coronal Face: Normal appearance Lips: Normal appearance Nose: Normal appearance Lenses: Normal appearance Orbits: Normal appearance Palate: Suboptimal views Heart Cardiac Activity: Normal appearance Cardiac Rhythm: Normal appearance 4 Chamber View: Normal appearance R. Outflow Tract: Normal appearance L. Outflow Tract: Normal appearance Interventr. Septum: Normal appearance 3 Vessel View: Normal appearance 3V Trachea View: Normal appearance Cardiac Situs: Normal appearance Aortic Arch: Normal appearance SVC: Normal appearance IVC: Normal appearance Ductal Arch: Normal appearance Crossing G. Ves.: Normal appearance Comment: The cardiac axis is 35.19 degrees Thorax Lungs: Normal appearance Cardiac Gorham: Normal appearance Diaphragm: Normal appearance Thoracic Contour: Normal appearance Abdomen Situs: Normal appearance Stomach: Normal appearance Bowel: Normal appearance Liver: Normal appearance Abdominal Wall: Normal appearance Urinary Bladder: Normal appearance R. Kidney: Normal appearance L. Kidney: Normal appearance R. Renal Artery: Normal appearance L. Renal Artery: Normal appearance Umbilical Cord: Normal Appearance UC Vessel Num.: Normal 3VC Cord Insertion: Normal appearance Spine Cervical: Normal appearance Thoracic: Normal appearance Lumbar: Normal appearance Sacral: Normal appearance Shape / Curvature: Normal appearance Over. Soft Tissue: Normal appearance Vertebral Body: Normal appearance Extremities R. Humerus: Normal appearance L. Humerus: Normal appearance R. Forearm: Normal appearance L. Forearm: Normal appearance R. Hand: Normal appearance L. Hand: Normal appearance R. Femur: Normal appearance L. Femur: Normal appearance R. Lower Leg: Normal appearance L. Lower Leg: Normal appearance R. Foot: Normal appearance L. Foot: Normal appearance Other Genitalia: Male CERVIX UTERUS ADNEXA: Cervix Within Normal Limits Abdominally Right Ovary Size(cm) 3.51 x 2.9 x 1.84 Vol(ml): 9.81 Normal in size and appearance. It is found between the uterus and the pelvic sidewall. Left Ovary Size(cm) 3.33 x 2.18 x 2.17 Vol(ml): 8.25 Normal in size and appearance. It is found between the uterus and the pelvic sidewall. COMMENTS: Ms. Kunz is being seen for a detailed ultrasound for a BMI of 34. - Her medical history is not contributory. This is her first . - She had cell free DNA screening performed. Results were low-risk for all conditions assessed. MSAFP was 1.11 MoMs. Ultrasound findings: The biometry and anatomical survey are appropriate for the gestational age. There are no markers of aneuploidy. - The patient declined vaginal ultrasound to assess cervical length for risk of . - Plan: No additional ultrasounds have been scheduled. Follow up as clinically indicated. Jerrica Marroquin MD Electronically Signed Final Report 03/18/2024 10:29 am Sabina Baldwin MD IMG OB US PROCEDURE S * Alpha fetoprotein, maternal (03/07/2024 4:07 PM EST) Physician Phone Number Not Provided 03/11/2024 11:41 AM EST [facility] Notes to Laboratory Not Provided 03/11/2024 11:41 AM EST [facility] Weight (lbs) 183 03/11/2024 11:41 AM EST [facility] Expected Due Date (MM/DD/YYYY) [id number] 03/11/2024 11:41 AM EST [facility] Expected [...] This is the initial sample received at [facility] for MSAFP SCREEN NEGATIVE [...] may significantly affect results. Test performed at [facility], [address], [place], [place] ??[address] ? [phone] Norma Chau MD, PhD - Phlebotomy Technologist Blood Venous blood specimen / Unknown Venipuncture / Unknown 03/07/2024 4:07 PM EST 03/07/2024 4:07 PM EST Sabina Baldwin MD LAB BLOOD ORDERABLE S TRISTEN [facility]EL[facility] [address] [place] [address] * US OB Less 14 Wks Nuchal Measurement (01/26/2024 2:19 PM EST) Anatomical Region Laterality Modality Body Ultrasound 01/26/2024 1:58 PM EST Narrative 01/26/2024 3:32 PM EST OBSTETRICS REPORT ?(Signed Final 01/26/2024 03:32 pm) PATIENT INFO: ID #: ? [id number] ? : ??[birth year] (23 yrs)(F) Name: ? LEANA KUNZ ? Visit Date: 01/26/2024 01:58 pm PERFORMED BY: Attending: ?Kasey Singletary MD Performed By: ? Denisha Patel RDMS Referred By: ?Yesenia MahanM Ref. Address: ? [address] ? [place] [address] Location: ? [facility] SERVICE(S) PROVIDED: US < 14 weeks Abdominal Ultrasound ?20785 Nuchal Translucency ?04248 INDICATIONS: Uterine size-date discrepancy, first trimester O26.841 Obesity complicating , 1st ?O99.211 trimester Encounter for screening for nuchal ?? Z36.82 translucency Encounter for screening for ?Z36.3 malformations 14 weeks gestation of ?Z3A.14 TECHNIQUE/SCAN QUALITY: Technique: ?? Transabdominal Scan ? Satisfactory Quality: OB HISTORY: : ?1 ? Term: ?? 0 ?Scooby: ?? 0 ?SAB: ?? 0 TOP: ?0 ? Ectopic: ??0 ?Livin VITAL SIGNS: Weight (lb) ?? Height ?BMI 182 ? 5'1 ?34.38 EVALUATION: Number Of Fetuses: ? 1 Heart Rate(bpm): ?? 150 Cardiac Activity: ?Observed Appears regular Presentation: ?Variable Placenta Location: ?Posterior Appearance: ?Grade 0 Cord Insertion: ?Normal appearance Amniotic Fluid MICHELE FV: ?Within Normal Limits BIOMETRY: GESTATIONAL AGE: LMP: ? 12w 3d ?Date: ??10/31/23 ?ELIU: ?? 08/06/24 Best: ?14w 0d ?? Det. By: ??C R L 1st ?ELIU: ?? 07/26/24 ? (01/26/24) 1ST TRIMESTER GENETIC SONOGRAM SCREENING: CRL: ? 80.48 ??mm ? G.Age: ?? 14w 0d ? ELIU: ?? 07/26/24 Nuc Trans: ?21.4 ??mm Nasal Bone: ? Normal appearance STANDARD ANATOMY: Cranium: ?Normal appearance Choroid Plexus: ? Normal appearance Stomach: ?Normal appearance Abdominal Wall: ? Normal appearance Cord Vessels: ? Normal 3-Vessel Cord Bladder: ?Normal appearance Upper Extremities: ?Seen Lower Extremities: ?Seen CERVIX UTERUS ADNEXA: Uterus Size(cm) ? 13 ?? x ?? 9.12 ?? x ??7.95 Uterus Vol(ml): ?493.52 Myometrium homogeneous, no lesions identified. Right Ovary Size(cm) ? 2.56 ?? x ?? 1.95 ?? x ??1.99 ?Vol(ml): 5.2 Normal in size and appearance. Normal in size and appearance. Left Ovary Size(cm) ? 4.49 ?? x ?? 2.12 ?? x ??3.11 ?Vol(ml): 15.5 Normal in size and appearance. It is found between the uterus and the pelvic sidewall. Cul De Sac There is no free fluid in the cul de sac. Adnexa Both adnexae appear unremarkable. COMMENTS: Ms. Kunz is being seen for first trimester screening for aneuploidy. - Her medical history is significant for a BMI of 34. - This is her first . - She had cell free DNA screening. The results are pending. - Ultrasound findings: The CRL is not consistent with ELIU of 08/04/24. Patient reports a due date of 07/30/24 based on early ultrasound in ER when patient was about 5 weeks . This report was not available for review today. The due date of 07/26/24 is assigned by today's ultrasound. - The nuchal translucency measurement is < 95th% for the gestational age. - biometry is consistent with dates. ??Assessment of the anatomy is appropriate for the gestational age. There are no ultrasound findings to suggest aneuploidy. - Plan: 1. A detailed ultrasound and cervical length screening for risk of have been scheduled. - 2. The patient should be offered second trimester MSAFP only, to assess for risk of an open neural tube defect. Kasey Singletary MD Electronically Signed Final Report ?? 01/26/2024 03:32 pm Procedure Kasey Watson MD - 01/26/2024 OBSTETRICS REPORT (Signed Final 01/26/2024 03:32 pm) PATIENT INFO: ID #: [id number] : [birth year] (23 yrs)(F) Name: LEANA KUNZ Visit Date: 01/26/2024 01:58 pm PERFORMED BY: Attending: Kasey Singletary MD Performed By: Denisha Patel RDMS Referred By: Yesenia Celestin C.N.M Ref. Address: [address] [place] [address] Location: [facility] SERVICE(S) PROVIDED: US < 14 weeks Abdominal Ultrasound 15347 US Nuchal Translucency 67443 INDICATIONS: Uterine size-date discrepancy, first trimester O26.841 Obesity complicating , 1st O99.211 trimester Encounter for screening for nuchal Z36.82 translucency Encounter for screening for Z36.3 malformations 14 weeks gestation of Z3A.14 TECHNIQUE/SCAN QUALITY: Technique: Transabdominal Scan Satisfactory Quality: OB HISTORY: : 1 Term: 0 Scooby: 0 SAB: 0 TOP: 0 Ectopic: 0 Livin VITAL SIGNS: Weight (lb) Height BMI 182 5'1 34.38 EVALUATION: Number Of Fetuses: 1 Heart Rate(bpm): 150 Cardiac Activity: Observed Appears regular Presentation: Variable Placenta Location: Posterior Appearance: Grade 0 Cord Insertion: Normal appearance Amniotic Fluid MICHELE FV: Within Normal Limits BIOMETRY: GESTATIONAL AGE: LMP: 12w 3d Date: 10/31/23 ELIU: 08/06/24 Best: 14w 0d Det. By: Cleo Vargas 1st ELIU: 07/26/24 (01/26/24) 1ST TRIMESTER GENETIC SONOGRAM SCREENING: CRL: 80.48 mm G.Age: 14w 0d ELIU: 07/26/24 Nuc Trans: 21.4 mm Nasal Bone: Normal appearance STANDARD ANATOMY: Cranium: Normal appearance Choroid Plexus: Normal appearance Stomach: Normal appearance Abdominal Wall: Normal appearance Cord Vessels: Normal 3-Vessel Cord Bladder: Normal appearance Upper Extremities: Seen Lower Extremities: Seen CERVIX UTERUS ADNEXA: Uterus Size(cm) 13 x 9.12 x 7.95 Uterus Vol(ml): 493.52 Myometrium homogeneous, no lesions identified. Right Ovary Size(cm) 2.56 x 1.95 x 1.99 Vol(ml): 5.2 Normal in size and appearance. Normal in size and appearance. Left Ovary Size(cm) 4.49 x 2.12 x 3.11 Vol(ml): 15.5 Normal in size and appearance. It is found between the uterus and the pelvic sidewall. Cul De Sac There is no free fluid in the cul de sac. Adnexa Both adnexae appear unremarkable. COMMENTS: Ms. Kunz is being seen for first trimester screening for aneuploidy. - Her medical history is significant for a BMI of 34. - This is her first . - She had cell free DNA screening. The results are pending. - Ultrasound findings: The CRL is not consistent with ELIU of 08/04/24. Patient reports a due date of 07/30/24 based on early ultrasound in ER when patient was about 5 weeks . This report was not available for review today. The due date of 07/26/24 is assigned by today's ultrasound. - The nuchal translucency measurement is < 95th% for the gestational age. - biometry is consistent with dates. Assessment of the anatomy is appropriate for the gestational age. There are no ultrasound findings to suggest aneuploidy. - Plan: 1. A detailed ultrasound and cervical length screening for risk of have been scheduled. - 2. The patient should be offered second trimester MSAFP only, to assess for risk of an open neural tube defect. Kasey Singletary MD Electronically Signed Final Report 01/26/2024 03:32 pm Yesenia ARDON IMG OB US PROCEDURE S * US OB Less 14 Wks Single or First Gestation (01/26/2024 2:19 PM EST) Anatomical Region Laterality Modality Body Ultrasound 01/26/2024 1:58 PM EST Narrative 01/26/2024 3:32 PM EST OBSTETRICS REPORT ?(Signed Final 01/26/2024 03:32 pm) PATIENT INFO: ID #: ? [id number] ? : ??[birth year] (23 yrs)(F) Name: ? LEANA ZE ? Visit Date: 01/26/2024 01:58 pm PERFORMED BY: Attending: ?Kasey Singletary MD Performed By: ? Denisha Patel RDMS Referred By: ?Yesenia Celestin C.N.M Ref. Address: ? [address] ? [place] [address] Location: ? [facility] SERVICE(S) PROVIDED: US < 14 weeks Abdominal Ultrasound ?70451 US Nuchal Translucency ?58426 INDICATIONS: Uterine size-date discrepancy, first trimester O26.841 Obesity complicating , 1st ?O99.211 trimester Encounter for screening for nuchal ?? Z36.82 translucency Encounter for screening for ?Z36.3 malformations 14 weeks gestation of ?Z3A.14 TECHNIQUE/SCAN QUALITY: Technique: ?? Transabdominal Scan ? Satisfactory Quality: OB HISTORY: : ?1 ? Term: ?? 0 ?Scooby: ?? 0 ?SAB: ?? 0 TOP: ?0 ? Ectopic: ??0 ?Livin VITAL SIGNS: Weight (lb) ?? Height ?BMI 182 ? 5'1 ?34.38 EVALUATION: Number Of Fetuses: ? 1 Heart Rate(bpm): ?? 150 Cardiac Activity: ?Observed Appears regular Presentation: ?Variable Placenta Location: ?Posterior Appearance: ?Grade 0 Cord Insertion: ?Normal appearance Amniotic Fluid MICHELE FV: ?Within Normal Limits BIOMETRY: GESTATIONAL AGE: LMP: ? 12w 3d ?Date: ??10/31/23 ?ELIU: ?? 08/06/24 Best: ?14w 0d ?? Det. By: ??C R L 1st ?ELIU: ?? 07/26/24 ? (01/26/24) 1ST TRIMESTER GENETIC SONOGRAM SCREENING: CRL: ? 80.48 ??mm ? G.Age: ?? 14w 0d ? ELIU: ?? 07/26/24 Nuc Trans: ?21.4 ??mm Nasal Bone: ? Normal appearance STANDARD ANATOMY: Cranium: ?Normal appearance Choroid Plexus: ? Normal appearance Stomach: ?Normal appearance Abdominal Wall: ? Normal appearance Cord Vessels: ? Normal 3-Vessel Cord Bladder: ?Normal appearance Upper Extremities: ?Seen Lower Extremities: ?Seen CERVIX UTERUS ADNEXA: Uterus Size(cm) ? 13 ?? x ?? 9.12 ?? x ??7.95 Uterus Vol(ml): ?493.52 Myometrium homogeneous, no lesions identified. Right Ovary Size(cm) ? 2.56 ?? x ?? 1.95 ?? x ??1.99 ?Vol(ml): 5.2 Normal in size and appearance. Normal in size and appearance. Left Ovary Size(cm) ? 4.49 ?? x ?? 2.12 ?? x ??3.11 ?Vol(ml): 15.5 Normal in size and appearance. It is found between the uterus and the pelvic sidewall. Cul De Sac There is no free fluid in the cul de sac. Adnexa Both adnexae appear unremarkable. COMMENTS: Ms. Kunz is being seen for first trimester screening for aneuploidy. - Her medical history is significant for a BMI of 34. - This is her first . - She had cell free DNA screening. The results are pending. - Ultrasound findings: The CRL is not consistent with ELIU of 08/04/24. Patient reports a due date of 07/30/24 based on early ultrasound in ER when patient was about 5 weeks . This report was not available for review today. The due date of 07/26/24 is assigned by today's ultrasound. - The nuchal translucency measurement is < 95th% for the gestational age. - biometry is consistent with dates. ??Assessment of the anatomy is appropriate for the gestational age. There are no ultrasound findings to suggest aneuploidy. - Plan: 1. A detailed ultrasound and cervical length screening for risk of have been scheduled. - 2. The patient should be offered second trimester MSAFP only, to assess for risk of an open neural tube defect. Kasey Singletary MD Electronically Signed Final Report ?? 01/26/2024 03:32 pm Procedure Kasey Watson MD - 01/26/2024 OBSTETRICS REPORT (Signed Final 01/26/2024 03:32 pm) PATIENT INFO: ID #: [id number] : [birth year] (23 yrs)(F) Name: LEANA KUNZ Visit Date: 01/26/2024 01:58 pm PERFORMED BY: Attending: Kasey Singletary MD Performed By: Denisha Patel RDOH Referred By: Yesenia Celestin C.N.M Ref. Address: [address] [place] [id number] Location: [facility] SERVICE(S) PROVIDED: US < 14 weeks Abdominal Ultrasound 71421 US Nuchal Translucency 68855 INDICATIONS: Uterine size-date discrepancy, first trimester O26.841 Obesity complicating , 1st O99.211 trimester Encounter for screening for nuchal Z36.82 translucency Encounter for screening for Z36.3 malformations 14 weeks gestation of Z3A.14 TECHNIQUE/SCAN QUALITY: Technique: Transabdominal Scan Satisfactory Quality: OB HISTORY: : 1 Term: 0 Scooby: 0 SAB: 0 TOP: 0 Ectopic: 0 Livin VITAL SIGNS: Weight (lb) Height BMI 182 5'1 34.38 EVALUATION: Number Of Fetuses: 1 Heart Rate(bpm): 150 Cardiac Activity: Observed Appears regular Presentation: Variable Placenta Location: Posterior Appearance: Grade 0 Cord Insertion: Normal appearance Amniotic Fluid MICHELE FV: Within Normal Limits BIOMETRY: GESTATIONAL AGE: LMP: 12w 3d Date: 10/31/23 ELIU: 08/06/24 Best: 14w 0d Det. By: Cleo Vargas 1st ELIU: 07/26/24 (01/26/24) 1ST TRIMESTER GENETIC SONOGRAM SCREENING: CRL: 80.48 mm G.Age: 14w 0d ELIU: 07/26/24 Nuc Trans: 21.4 mm Nasal Bone: Normal appearance STANDARD ANATOMY: Cranium: Normal appearance Choroid Plexus: Normal appearance Stomach: Normal appearance Abdominal Wall: Normal appearance Cord Vessels: Normal 3-Vessel Cord Bladder: Normal appearance Upper Extremities: Seen Lower Extremities: Seen CERVIX UTERUS ADNEXA: Uterus Size(cm) 13 x 9.12 x 7.95 Uterus Vol(ml): 493.52 Myometrium homogeneous, no lesions identified. Right Ovary Size(cm) 2.56 x 1.95 x 1.99 Vol(ml): 5.2 Normal in size and appearance. Normal in size and appearance. Left Ovary Size(cm) 4.49 x 2.12 x 3.11 Vol(ml): 15.5 Normal in size and appearance. It is found between the uterus and the pelvic sidewall. Cul De Sac There is no free fluid in the cul de sac. Adnexa Both adnexae appear unremarkable. COMMENTS: Ms. Kunz is being seen for first trimester screening for aneuploidy. - Her medical history is significant for a BMI of 34. - This is her first . - She had cell free DNA screening. The results are pending. - Ultrasound findings: The CRL is not consistent with ELIU of 08/04/24. Patient reports a due date of 07/30/24 based on early ultrasound in ER when patient was about 5 weeks . This report was not available for review today. The due date of 07/26/24 is assigned by today's ultrasound. - The nuchal translucency measurement is < 95th% for the gestational age. - biometry is consistent with dates. Assessment of the anatomy is appropriate for the gestational age. There are no ultrasound findings to suggest aneuploidy. - Plan: 1. A detailed ultrasound and cervical length screening for risk of have been scheduled. - 2. The patient should be offered second trimester MSAFP only, to assess for risk of an open neural tube defect. Kasey Singletary MD Electronically Signed Final Report 01/26/2024 03:32 pm Yesenia Celestin CNM IMG OB US PROCEDURE S * Chlamydia trachomatis and neisseria gonorrhoeae by tma, thinprep (01/25/2024 12:27 PM EST) N. gonorrhoeae, RNA Probe Negative Negative LAB MICROBIOLOGY METHOD 01/26/2024 12:48 PM EST [facility] Chlamydia, RNA Probe Negative Negative LAB MICROBIOLOGY METHOD 01/26/2024 12:48 PM EST [facility] Broom Cervix uteri structure / Unknown 01/25/2024 12:27 PM EST 01/26/2024 7:09 AM EST Yesenia ARDON LAB CYTOLOGY ORDERA BLES [facility] [address] [place] [address], [place] [phone] * Pap smear (01/25/2024 12:27 PM EST) Interpretation Negative for intraepithelial lesion or malignancy 01/30/2024 8:59 AM EST [facility] General Categorization Negative 01/30/2024 8:59 AM EST [facility] LMP 10/31/2023 01/30/2024 8:59 AM [facility] Specimen Adequacy Satisfactory for evaluation, endocervical/callejas sformation zone component absent 01/30/2024 8:59 AM [facility] Pap Methodology Liquid Based Pap Test 01/30/2024 8:59 AM [facility] Disclaimer The Pap test is a screening test which carries an inherent false negative rate. These test results should be correlated with the patient's clinical findings and history. This Pap test was processed using an automated screening system. Technical cytopathology services provided by [facility], at [address] [place] [id number] (CLIA # [id number]/Aneta Xavier MD, Phlebotomy Technologist.) 01/30/2024 8:59 AM [facility] Console Pap Interpretation Reported 01/30/2024 8:59 AM [facility] Broom Cervix uteri structure / Unknown 01/25/2024 12:27 PM EST 01/25/2024 12:27 PM EST Yesenia Celestin [facility] CYTOLOGY ORDERA BLES Performing Organization Address City/[facility]/ZIP Co de Phone Number [facility] [address] [place] [phone], * Hepatitis C antibody (01/10/2024 3:19 PM EST) Hepatitis C Antibody Negative Negative LAB CHEMISTRY METHOD 01/10/2024 6:16 PM [facility] Blood Venous blood specimen / Unknown Venipuncture / Unknown 01/10/2024 3:19 PM EST 01/10/2024 3:19 PM EST Sabina Baldwin MD LAB BLOOD ORDERABLE S Performing Organization Address City/[facility]/ZIP Co de Phone Number [facility] [address] [place] [address], [place] [phone] * HIV 1,2 antibody, p24 antigen with reflex to differentiation (01/10/2024 3:19 PM EST) [facility] HIV Combo AB/AG Negative Negative LAB CHEMISTRY METHOD 01/10/2024 6:17 PM EST [facility] Blood Venous blood specimen / Unknown Venipuncture / Unknown 01/10/2024 3:19 PM EST 01/10/2024 3:19 PM EST Narrative [facility] - 01/10/2024 6:17 PM EST This assay is a 4th generation assay allowing for earlier detection of HIV infection by detecting the presence of the HIV-1 p24 antigen as well as the traditional antibodies to HIV type 1 (including group O) and type 2. ??Use of a 4th generation assay is the current CDC recommendation for HIV screening. Sabina Baldwin MD LAB BLOOD ORDERABLE S Performing Organization Address City/[facility]/ZIP Co de Phone Number [facility] [address] [place] [address], [place] [phone] * Treponema pallidum antibody with reflex to RPR and particle agglutination (01/10/2024 3:19 PM EST) [facility] T. Pallidum Antibodies Negative Negative LAB CHEMISTRY METHOD 01/10/2024 5:50 PM EST [facility] Blood Venous blood specimen / Unknown Venipuncture / Unknown 01/10/2024 3:19 PM EST 01/10/2024 3:19 PM EST Yesenia Celestin CNM LAB BLOOD ORDERABLE S Performing Organization Address City/[facility]/ZIP Co de Phone Number [facility] [address] [place] [address], [place] [phone] * GTT gestational 1 hour (01/10/2024 3:19 PM EST) Glucose, 1 HR Gestational 96 See Comment mg/dL LAB CHEMISTRY METHOD 01/10/2024 5:21 PM [facility] Blood Venous blood specimen / Unknown Venipuncture / Unknown 01/10/2024 3:19 PM EST 01/10/2024 3:19 PM EST Narrative [facility] - 01/10/2024 5:21 PM EST Gestational Diabetes Challenge Reference Range: 1 hour Glucose <140 mg/dL Yesenia Celestin [facility] BLOOD ORDERABLE S [facility] [address] [place] [address], * Drug abuse screen 8a panel, urine (01/10/2024 3:19 PM EST) [facility] Amphetamine Screen, Ur Negative Negative LAB CHEMISTRY METHOD 01/10/2024 5:26 PM [facility] Comment:Certain OTC medicati ons containing ephedrine, phenylephrine, pseudoephedrine and phenylpropanolamine can cause false positive results. Barbiturate Screen, Ur Negative Negative LAB CHEMISTRY METHOD 01/10/2024 5:26 PM [facility] [facility] Benzodiazepine Screen, Ur Negative Negative LAB CHEMISTRY METHOD 01/10/2024 5:26 PM [facility] Cocaine Screen, Ur Negative Negative LAB CHEMISTRY METHOD 01/10/2024 5:26 PM [facility] Opiate Screen, Ur Negative Negative LAB CHEMISTRY METHOD 01/10/2024 5:26 PM [facility] Cannabinoid (THC) Screen, Ur Negative Negative LAB CHEMISTRY METHOD 01/10/2024 5:26 PM [facility] Comment:Specimens from patie nts taking pantoprazole sodium (Protonix) have been shown to produce false positive results. Oxycodone Screen, Ur Negative Negative LAB CHEMISTRY METHOD 01/10/2024 5:26 PM [facility] Fentanyl, Ur Negative Negative LAB CHEMISTRY METHOD 01/10/2024 5:26 PM EST [facility] Urine Urine specimen obtained by clean catch procedure / Unknown Non-blood Collection / Unknown 01/10/2024 3:19 PM EST 01/10/2024 3:19 PM EST Narrative [facility] - 01/10/2024 5:26 PM EST Assay cutoffs: Amphetamines ? 1000 ng/mL Barbiturates ?200 ng/mL Benzodiazepines ?? 200 ng/mL Cocaine ? 300 ng/mL Fentanyl ?1 ng/mL Opiates ? 300 ng/mL Oxycodone ? 100 ng/mL THC ?50 ng/mL Semi-quantitative assay for screening purposes only. Unconfirmed screening result should not be used for non-medical purposes. *ALTERNATE METHOD CONFIRMATION DONE UPON REQUEST ONLY* Yesenia Celestin CNM LAB URINE ORDERABLE S [facility]) [facility] [address] [place] [address], * Rubella antibody, IgM (01/10/2024 3:19 PM EST) Rubella Antibody IgM <10.0 <20.0 AU/mL 01/13/2024 7:00 AM EST [facility] Comment: INTERPRETATION: Negative: ??No antibody detected. Test performed at [facility], [address], [place] ??[address] ? [phone] Norma Chau MD, PhD - Phlebotomy Technologist Blood Venous blood specimen / Unknown Venipuncture / Unknown 01/10/2024 3:19 PM EST 01/10/2024 3:19 PM EST Yesenia ARDONM LAB BLOOD ORDERABLE S [address] [address] * Hepatitis B core antibody IgM (01/10/2024 3:19 PM EST) Hep B Core IgM Negative Negative LAB CHEMISTRY METHOD 01/10/2024 6:16 PM EST [facility] Blood Venous blood specimen / Unknown Venipuncture / Unknown 01/10/2024 3:19 PM EST 01/10/2024 3:19 PM EST Narrative [facility] - 01/10/2024 6:16 PM EST Over the counter supplements containing high doses of biotin may interfere with this assay. ??If interference is suspected, patients shoud be retested after refraining from biotin supplements for 72 hours. Yesenia Ashlee [facility] [place] [place] [facility] BLOOD ORDERABLE S Performing Organization Address [facility]/ZIP Co de Phone Number [facility] [address] [place] [address], [place] [phone] * Rubella antibody IgG (01/10/2024 3:19 PM EST) Only the most recent of2 resultswithin the time period is included. Pathologist [facility] Rubella IgG Quant 54.8 >=10.0 I Unit/mL LAB CHEMISTRY METHOD 01/10/2024 5:47 PM EST [facility] Rubella IgG Antibody Interp Positive Positive LAB CHEMISTRY METHOD 01/10/2024 5:47 PM EST [facility] Blood Venous blood specimen / Unknown Venipuncture / Unknown 01/10/2024 3:19 PM EST 01/10/2024 3:19 PM EST Yesenia Ashlee [facility] LAB BLOOD ORDERABLE S [facility] [address] [place] [address], [place] [phone] * Type and screen (01/10/2024 3:19 PM EST) [facility] ABO Group A 01/10/2024 6:15 PM EST [facility] Rh Type Positive 01/10/2024 6:15 PM EST [facility] Antibody Screen Negative 01/10/2024 6:15 PM EST [facility] Blood Venous blood specimen / Unknown Venipuncture / Unknown 01/10/2024 3:19 PM EST 01/10/2024 3:19 PM EST Sabina Baldwin MD LAB BLOOD BANK TEST ORDERABLES [facility] [address] [place] [address], [place] [phone] * Culture urine (01/10/2024 3:19 PM EST) [facility] Culture, Urine No growth 01/11/2024 11:11 AM EST [facility] Urine Urine specimen obtained by clean catch procedure / Unknown Non-blood Collection / Unknown 01/10/2024 3:19 PM EST 01/10/2024 3:19 PM EST Yesenia Celestin CNM LAB MICROBIOLOGY - GENERAL ORDERABLES [facility] [address] [place] [address], [place] [phone] * Hemoglobin A1c (01/10/2024 3:19 PM EST) [facility] Hemoglobin A1C 5.2 <6.5 % LAB CHEMISTRY METHOD 01/11/2024 10:05 PM [facility] Mean Bld Glu Estim. 103 mg/dL LAB CHEMISTRY METHOD 01/11/2024 10:05 PM EST [facility] Blood Venous blood specimen / Unknown Venipuncture / Unknown 01/10/2024 3:19 PM EST 01/10/2024 3:19 PM EST Yesenia Celestin [facility] BLOOD ORDERABLE S Performing Organization Address City/[facility]/ZIP Co de Phone Number [facility] [address] [place] [address], * Varicella zoster antibody IgG (01/10/2024 3:18 PM EST) Pathologist [facility] Varicella IgG Positive Positive LAB CHEMISTRY METHOD 01/11/2024 10:18 AM EST [facility] Varicella Zoster IgG 1.62 >=1.00 S/CO LAB CHEMISTRY METHOD 01/11/2024 10:18 AM EST [facility] Blood Venous blood specimen / Unknown Venipuncture / Unknown 01/10/2024 3:18 PM EST 01/10/2024 3:22 PM EST Narrative [facility] - 01/11/2024 10:18 AM EST Interpretation >= 1.00 S/CO is considered to be consistent with Immunity Yeseniachandu Celestin [facility] BLOOD ORDERABLE S Performing Organization Address [facility]/ZIP Co de Phone Number [facility] [address] [place] [address], * Hepatitis B surface antigen with reflex to confirmation (01/10/2024 2:24 PM EST) Pathologist [facility] Hepatitis B Surface Ag Negative Negative LAB CHEMISTRY METHOD 01/10/2024 6:11 PM EST [facility] Blood Venous blood specimen / Unknown Venipuncture / Unknown 01/10/2024 2:24 PM EST 01/10/2024 5:36 PM EST Narrative [facility] - 01/10/2024 6:11 PM EST Over the counter supplements containing high doses of biotin may interfere with this assay. ??If interference is suspected, patients shoud be retested after refraining from biotin supplements for 72 hours. Yesenia Celestin CNM LAB BLOOD ORDERABLE S RUSSELL CHAU [place] ([facility]) [facility] [address] [place] [address], * External clinical lab (01/10/2024) Only the most recent of3 resultswithin the time period is included. Provider On[facility] LAB BLOOD ORDERABLES from Last 3 Months Care Teams Produce Runner Relationship Specialty Start Date End Date [facility] [address] [facility] [address] [place] [address] PCP - General Family Medicine 01/05/24
--- OUTSIDE RECORDS SUMMARY | 2024-03-26 18:11 | XMS_ITS | Encounter Summary ---
Author Organization [facility] Address [address] [place] [address] Care Team Providers Care Test Desk Operator Name Role Phone [facility] Primary Care Provider [phone] Reason for Visit * Imaging (Routine) - Pending Review Specialty Diagnoses / Procedures Referred By Contac t Referred To Contact Radiology Diagnoses Obesity complicating childbirth Procedures US OB Detailed Single or First Gestation Sabina Baldwin MD [address] [place], [place] [address] Referral ID Status Reason Start Date Expiration Date V isits Requested Visits Authorized [id number] Pending Review 03/07/2024 03/07/2025 1 1 Encounter Details Date Type Department Care Team (Latest Contact Info) Description 03/15/2024 2:00 PM EST Ancillary Procedure Maternal Medicine - [address] [phone] Obesity complicating childbirth Social History Tobacco Use Types Packs/Day Years [...] Progress Notes * Sabina Baldwin MD - 03/15/2024 2:00 PM EST Normal anatomic survey documented in this encounter Plan of Treatment Upcoming Encounters Date Type Department Care Team (Late st Contact Info) Description 03/28/2024 4:00 PM EST Routine Obstetrics and Gynecology - [address] [phone] Elizabeth Altamirano [address] 04/25/2024 4:00 PM EST Routine Obstetrics and Gynecology - [address] [phone] Elizabeth Altamirano [address] 05/23/2024 4:00 PM EDT Routine Obstetrics and Gynecology - [address] [phone] Elizabeth Altamirano, [address] documented as of this encounter Procedures Procedure Name Priority Date/Time Associated Diagnosis Comments US OB DETAILED SINGLE OR FIRST GESTATION Routine 03/15/2024 2:50 PM EST Obesity complicating childbirth documented in this encounter Results * US OB Detailed Single or First Gestation (03/15/2024 2:50 PM EST) Anatomical Region Laterality Modality Body Ultrasound 03/15/2024 12:4 4 PM EST Narrative 03/18/2024 10:29 AM EST OBSTETRICS REPORT ?(Signed Final 03/18/2024 10:29 am) PATIENT INFO: ID #: ? [id number] ? : [birth year] (23 yrs)(F) Name: ? LEANA CELSA ? Visit Date: 03/15/2024 12:44 pm PERFORMED BY: Attending: ?Jerrica Marroquin MD Performed By: ? Keaton Mars RDMS Referred By: ?Yesenia LongNJosiah Ref. Address: ? [address] ? [place], [place] [address] Location: ? [place] [facility]) SERVICE(S) PROVIDED: US Level II complete (Targeted OB) ?33017 INDICATIONS: Obesity complicating , 2nd ?O99.212 trimester [...] - 20.3 HC/AC: ? 1.18 ?1.06 - 1.25 FL/BPD: ?75.7 ??% FL/AC: ? 23.4 ??% ? - 24 Est. FW: ? 398 ??gm ? 0 [...] 35.19 degrees Thorax Lungs: ?Normal appearance Cardiac [place]: ? Normal appearance Diaphragm: ?Normal appearance Thoracic [...] Final Report ?? 03/18/2024 10:29 am Procedure Jerrica Foster MD - 03/18/2024 OBSTETRICS REPORT (Signed Final 03/18/2024 10:29 am) PATIENT INFO: ID #: [id number] : [birth year] (23 yrs)(F) Name: LEANA KUNZ Visit Date: 03/15/2024 12:44 pm PERFORMED BY: Attending: Jerrica Marroquin MD Performed By: Keaton Mars RDMS Referred By: Yesenia Celestin C.N.M Ref. Address: [address] [place] [address] Location: [facility]) SERVICE(S) PROVIDED: US Level II complete (Targeted OB) [address]64 INDICATIONS: Obesity complicating , 2nd O99.212 trimester [...] 1.25 FL/BPD: 75.7 % FL/AC: 23.4 % 20 - 24 Est. FW: 398 gm 0 lb 14 [...] 35.19 degrees Thorax Lungs: Normal appearance Cardiac [place]: Normal appearance Diaphragm: Normal appearance Thoracic Contour: [...] Baldwin MD IMG OB US PROCEDURE S documented in this encounter Visit Diagnoses Diagnosis Obesity complicating childbirth documented in this encounter Care Teams Test Desk Operator Relationship Specialty Start Date End Date [facility] [address] [address] PCP - General Family Medicine 01/05/24 documented as of this encounter
--- OUTSIDE RECORDS SUMMARY | 2024-03-26 18:11 | XMS_ITS | Encounter Summary ---
Author Organization [facility] Address [address] [place] [address] Care Team Providers Care Records And Information Manager Name Role Phone [facility] Primary Care Provider [phone] Reason for Referral * Imaging (Routine) - Pending Review Specialty Diagnoses / Procedures Referred By Mauri t Referred To Contact Radiology Diagnoses Obesity complicating childbirth Procedures US OB Detailed Single or First Gestation Sabina Baldwin MD [address] [place], [place] [address] Referral ID Status Reason Start Date Expiration Date V isits Requested Visits Authorized [id number] Pending Review 03/07/2024 03/07/2025 1 1 Reason for Visit * Reason Comments Routine Visit Encounter Details Date Type Department Care Team (Latest Contact Info) Description 03/07/2024 3:30 PM EST Routine Obstetrics and Gynecology - [address] [phone] Sabina Baldwin MD [address] [place] [address] Supervision of normal first , antepartum (Primary Dx); Obesity complicating childbirth Social History Tobacco Use [...] on file documented as of this encounter Last Filed Vital Signs Vital Sign Reading Time Taken Comments Blood Pressure 114/68 03/07/2024 3:34 PM EST Pulse 95 03/07/2024 3:34 PM EST Temperature - - Respiratory Rate 14 03/07/2024 3:34 PM EST Oxygen Saturation - - Inhaled Oxygen Concentration - - Weight 83.1 kg (183 lb 3.2 oz) 03/07/2024 3:34 P M EST Height - - Body Mass Index 34.62 01/08/2024 2:17 PM EST documented in this encounter Ordered Prescriptions Prescription Sig Dispensed Refills Start Date End Da te vitamin iron fum-folic acid 27-0.8 mg per tablet Take 1 tablet by mouth 1 (one) time each day. 90 each 3 03/07/2024 documented in this encounter Progress Notes * Sabina Baldwin MD - 03/07/2024 3:30 PM EST OB Visit: Vitals BP: 114/68 Weight: 83.1 kg (183 lb 3.2 oz) Assessment Heart Rate: 150 Fundal Height (cm): 20 cm Movement: Present Vaginal Drainage Leaking Fluid: No 23 y.o. old female at 19w6d. Doing well. + FM. No LOF/VB/cramping. No concerns. Taking ASA andPNV. Otherwise healthy . Her BP is reviewed and is Normal. Aneuploidy screening reviewed; it is Normal. MSAFP ordered. She does not require a urine drug screen. Signs and symptoms of labor reviewed including reasons to call triage. Problem List reviewed and updated. RTO 4 weeks. Sabina Baldwin MD on 03/07/2024 at 3:48 PM EST documented in this encounter Plan of Treatment Upcoming Encounters Date Type Department Care Team (Late st Contact Info) Description 03/28/2024 4:00 PM EST Routine Obstetrics and Gynecology - [address] [phone] Elizabeth Altamirano, [address] 04/25/2024 4:00 PM EST Routine Obstetrics and Gynecology - [address] [phone] Elizabeth Altamirano, [address] 05/23/2024 4:00 PM EDT Routine Obstetrics and Gynecology - [address] [phone] Elizabeth Altamirano, [address] documented as of this encounter Results * US OB Detailed Single or First Gestation (03/15/2024 2:50 PM EST) Anatomical Region Laterality Modality Body Ultrasound 03/15/2024 12:4 4 PM EST Narrative 03/18/2024 10:29 AM EST OBSTETRICS REPORT ?(Signed Final 03/18/2024 10:29 am) PATIENT INFO: ID #: ? [id number] ? : ??[birth year] (23 yrs)(F) Name: ? LEANA KUNZ ? Visit Date: 03/15/2024 12:44 pm PERFORMED BY: Attending: ?Jerrica Marroquin MD Performed By: ? Keaton Mars, RDMS Referred By: ?Yesenia LongNAngelinaM Ref. Address: ? [address] ? [facility] [place] [address] Location: ? [place] [facility] ([facility]) SERVICE(S) PROVIDED: US Level II complete (Targeted OB) ?[address]226 INDICATIONS: Obesity complicating , 2nd ?O99.212 trimester [...] ?75.7 ??% FL/AC: ? 23.4 ??% ? 20 - 24 Est. FW: ? 398 ??gm [...] 35.19 degrees Thorax Lungs: ?Normal appearance Cardiac [place]: ? Normal appearance Diaphragm: ?Normal appearance Thoracic [...] 03/18/2024 10:29 am) PATIENT INFO: ID #: [id number] : [birth year] (23 yrs)(F) Name: LEANA KUNZ Visit Date: 03/15/2024 12:44 pm PERFORMED BY: Attending: Jerrica Marroquin MD Performed By: Keaton Mars RDMS Referred By: Yesenia Celestin C.N.M Ref. Address: [address] [place] [address] Location: [place] [facility] ([facility]) SERVICE(S) PROVIDED: US Level II complete (Targeted OB) [address]8501 INDICATIONS: Obesity complicating , 2nd O99.212 trimester [...] 35.19 degrees Thorax Lungs: Normal appearance Cardiac [place]: Normal appearance Diaphragm: Normal appearance Thoracic Contour: [...] EST [facility] Expected Due Date (MM/DD/YYYY) [id number] 03/11/2024 11:41 AM EST [facility] Expected [...] This is the initial sample received at [facility] for MSAFP SCREEN NEGATIVE FOR NEURAL [...] may significantly affect results. Test performed at [facility], [address], [place], [place] ??[address] ? [phone] Norma Chau MD, PhD - [employer]ot Packer Blood Venous blood specimen / Unknown Venipuncture / Unknown 03/07/2024 4:07 PM EST 03/07/2024 4:07 PM EST Sabina Baldwin MD LAB BLOOD ORDERABLE S Performing Organization Address City/State/[facility] Co de Phone Number [facility] [address] 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 Reorder 03/07/2024 documented as of this encounter Care Teams Records And Information Manager Relationship Specialty Start Date End Date [facility] [address] [place] [phone] PCP - General Family Medicine 01/05/24 documented as of this encounter
[2024-03-26 19:00] LABS: IDNOW Serial# 58CA691E; Strep A Nucleic Acid Negative (Negative)
--- NOTE | 2024-03-26 19:08 | PC.NURSE ---
patient a&ox3, rr equal/non labored, vss, heart tones performed hr 148/155. swabs performed, will continue plan of care
[2024-03-26 19:29] LABS: Influenza A PCR POSITIVE (Negative); Influenza B PCR NEGATIVE (Negative); Resp Syncy Virus RNA Qual PCR NEGATIVE (Negative); SARS COV2 PCR INHOUSE NEGATIVE (Negative)
[2024-03-26 20:00] VITALS: BP 128/75; PULSE 87; RESP 18; TEMP 37.2; O2SAT 96
[2024-03-26] MEDS: Oseltamivir Phosphate 75 MG CAPSULE PO (20:18)
--- NOTE | 2024-03-26 20:18 | PC.NURSE ---
pt medicated with tamiflu per order
[2024-03-26 20:58] VITALS: BP 118/68; PULSE 93; RESP 18; TEMP 37.2; O2SAT 96
== END 2024-03-26 20:58 | disposition home or self-care (01) ==
PROVIDERS: Emergency Provider Emergency Medicine Emergency Medical Services; PCP Registered Nurse
DX: O99.512 Diseases of the respiratory system complicating pregnancy, second trimester (principal); J10.1 Influenza due to other identified influenza virus with other respiratory manifestations; Z3A.22 22 weeks gestation of pregnancy; Z03.818 Encounter for observation for suspected exposure to other biological agents ruled out
CPT/HCPCS: 0241U; 87651; 99283; 99284